=== PATIENT | female | born 1950 | race African-American/Black ===

== ENCOUNTER 2019-04-17 13:31 | Inpatient (IN) | payer OTHER ==
[2019-04-17 14:03] VITALS: BMI 18.1
[2019-04-17] MEDS ORDERED: METOCLOPRAMIDE HCL INJECTION 10 MG/2 ML VIAL IVPUSH ONE (14:18)
--- NOTE | 2019-04-17 14:21 | PDOC ---
Attending Attestation - Resident Resident Name: LynLuther salas - ED Attending Attestation I have performed the following: I have examined & evaluated the patient, The case was reviewed & discussed with the resident, I agree w/resident's findings & plan, Exceptions are as noted - HPI HPI: 04/17/19 14:21 69-year-old female history of hypertension, CAD with 1 stent from 2014, polysubstance abuse(heroin last use today, crack last use 2 days ago), etoh presents with complaint of chest pain. Patient states that she was going to [facility] for detox was noted to have chest pain so sent to the ER for evaluation. Patient states that her chest pain started 2 to 3 days ago when she was using crack it is left-sided, pressure-like patient states it is familiar to her when she uses her crack. Patient also endorses nausea, vomiting , diarrhea, diaphoresis, body aches that is consistent with her withdrawal symptoms. Patient states that sometimes she has some exertional chest discomfort however is different from what she is currently experiencing. PMH: HTN, CAD with stent PSurg: CAD/stent, left mastectomy for sarcoma - Physicial Exam PE: 04/17/19 14:27 GENERAL: The patient is awake, alert, and fully oriented, Nontoxic - in no acute distress. HEAD: Normocephalic, atraumatic. EYES: extraocular movements intact, sclera anicteric, conjunctiva clear. ENT: Normal voice, Moist mucous membranes. NECK: Normal range of motion, supple LUNGS: Breath sounds equal, clear to auscultation bilaterally. No wheezes, no rhonchi, no rales. HEART: Regular rate and rhythm, normal S1 and S2 without murmur, rub or gallop. ABDOMEN: Soft, nontender, No guarding, no rebound. No CVA tenderness EXTREMITIES: Normal range of motion, no edema. NEUROLOGICAL: No facial assymetry, Normal speech, moving all 4 extremities spontaneously and symmetrically PSYCH: Normal mood, normal affect. SKIN: Warm, Dry, normal turgor, sp L mastectomy - Medical Decision Making 04/17/19 14:29 69-year-old history of CAD, hypertension, polysubstance abuse presenting with a complaint of chest pain in the setting of having smoked crack 2 days ago. On exam the patient is no acute distress EKG does not really reveal any acute ischemic changes. Will obtain blood work, troponin, repeat EKG, chest x-ray The patient had received baby aspirin prior to arrival 04/17/19 18:00 patient's troponins negative x1, repeat EKG is unchanged from prior The patient's pain is somewhat atypical, non exertional. pt has a copy of EKG that shows TWI in the inferior leads - [place] compared to ekg here. will admit for furrther management Heart Score/ECG Review - ECG Impressions Comment:: 04/17/19 14:32 Twelve-lead EKG was performed and reviewed by me. There is normal sinus rhythm with a normal rate. Rate of 69 LVH No prior EKG for comparison
[2019-04-17] MEDS ORDERED: ACETAMINOPHEN 1000 MG/100 ML VIAL (NON FORMULARY) IVPB ONE (14:36)
[2019-04-17] MEDS ORDERED: SODIUM CHLORIDE 1,000 ML IV ONE (14:36)
[2019-04-17] MEDS ORDERED: NITROGLYCERIN SUBLINGUAL 1/150 0.4 MG TAB SL ONE (14:38)
[2019-04-17] MEDS ORDERED: METHADONE HCL 10 MG TABLET PO ONE (14:44)
[2019-04-17] MEDS ORDERED: METOCLOPRAMIDE HCL INJECTION 10 MG/2 ML VIAL ONE (14:47)
[2019-04-17] MEDS ORDERED: METHADONE HCL 10 MG TABLET ONE (14:47)
[2019-04-17] MEDS ORDERED: NITROGLYCERIN SUBLINGUAL 1/150 0.4 MG TAB ONE (14:48)
[2019-04-17] MEDS ORDERED: ACETAMINOPHEN INJECTION 100 ML IVPB ONE (14:48)
--- NOTE | 2019-04-17 15:37 | PDOC ---
History of Present Illness - General Chief Complaint: Chest Pain Stated Complaint: Chest Pain Time Seen by Provider: 04/17/19 14:12 History Source: Patient Exam Limitations: No Limitations - History of Present Illness Initial Comments: 04/17/19 15:31 69 yo female pmh HTN, CAD (s/p 1 stent in 2015) heroin and cocaine abuse (last used heroin this am, cocain 2 days ago) etoh abuse presents to the ED from [facility] rehab for CP. During evaluation at [facility] for admission for withdrawal. Pt reports CP started yesterday while resting at home, CP described as sharp and stabbing, Left chest with associated nausea, vomiting and diaphoresis along with body aches similar to past withdrawal symptoms. CP is worse on exertion. Denies recent travel, calf tenderness, back pain, SOB, abdominal pain, F/C/N/V. Past History - Past Medical History Allergies/Adverse Reactions: Allergies Allergy/AdvReac Type Severity Reaction Status Date / Time No Known Allergies Allergy Verified 04/17/19 11:39 Home Medications: Ambulatory Orders NK [No Known Home Medication] 04/17/19 Asthma: No Cardiac Disorders: Yes (CAD) COPD: No Diabetes: No GI Disorders: No Disorders: No HTN: Yes Kidney Stones: No Seizures: No - Surgical History Abdominal Surgery: No Appendectomy: No Cardiac Surgery: Yes (cardiac stent) Cholecystectomy: No Lung Surgery: No Neurologic Surgery: No Orthopedic Surgery: No - Psycho Social/Smoking Cessation Hx Smoking History: Current every day smoker Have you smoked in the past 12 months: Yes Number of Cigarettes Smoked Daily: 10 Information on smoking cessation initiated: Yes 'Breaking Loose' booklet given: 04/17/19 Hx Alcohol Use: Yes Drug/Substance Use Hx: Yes Hx Substance Use Treatment: Yes (10 years ago) Review of Systems - Review of Systems Constitutional: No: Chills, Fever Respiratory: No: Shortness of Breath Cardiac (ROS): Yes: Chest Pain. No: Edema ABD/GI: Yes: Nausea, Vomiting : No: Burning, Dysuria, Frequency, Flank Pain Musculoskeletal: No: Back Pain Integumentary: No: Change in Color Neurological: No: Headache *Physical Exam - Vital Signs Last Vital Signs Temp Pulse Resp BP Pulse Ox 98.0 F 68 20 185/72 H 98 04/17/19 13:56 04/17/19 13:56 04/17/19 13:56 04/17/19 13:56 04/17/19 13:56 - Physical Exam General Appearance: Yes: Nourished, Appropriately Dressed. No: Apparent Distress HEENT: positive: EOMI Neck: positive: Supple. negative: Carotid bruit Respiratory/Chest: positive: Lungs Clear, Normal Breath Sounds. negative: Respiratory Distress, Rapid RR, Crackles, Rales, Rhonchi, Stridor, Wheezing Cardiovascular: positive: Regular Rhythm, Regular Rate, S1, S2. negative: Edema , JVD, Murmur Vascular Pulses: Dorsalis-Pedis (R): 4+, Doralis-Pedis (L): 4+ Gastrointestinal/Abdominal: positive: Flat, Soft. negative: Pulsatile Mass, Protuberent, Distended, Guarding, Rebound, Tenderness Musculoskeletal: negative: CVA Tenderness Extremity: positive: Normal Capillary Refill, Normal Inspection, Normal Range of Motion Integumentary: positive: Normal Color, Dry, Warm Neurologic: positive: Fully Oriented, Alert, Normal Response Heart Score/ECG Review - History History: Moderately suspicious - Electrocardiogram EKG: Non specific repolarization disturbance - Age Age: >/= 65 - Risk Factors Risk Factors Heart Score: Yes Hx Hypertension, Yes Smoking History, Yes Positive family hx of cardiac disease Based on the list above the patient has:: >/=3 risk factors or Hx atherosclerotic disease - Troponin Troponin: </= normal limit - Score Heart Score - Total: 6 ED Treatment Course - LABORATORY CBC & Chemistry Diagram: 04/17/19 16:33 04/17/19 16:33 - Medications Given in the ED: ED Medications Discontinued Medications Generic Name Dose Route Start Last Admin Trade Name Ghulam PRN Reason Stop Dose Admin Acetaminophen 1,000 mg 04/17/19 14:36 04/17/19 14:59 Ofirmev Injection - IVPB 04/17/19 14:37 1,000 mg ONCE ONE Administration Methadone HCl 10 mg 04/17/19 14:44 04/17/19 15:00 Dolophine - PO 04/17/19 14:45 10 mg ONCE ONE Administration Metoclopramide HCl 10 mg 04/17/19 14:18 04/17/19 14:58 Reglan Injection - IVPUSH 04/17/19 14:19 10 mg ONCE ONE Administration Nitroglycerin 0.4 mg 04/17/19 14:38 04/17/19 15:00 Nitrostat - SL 04/17/19 14:39 0.4 mg ONCE ONE Administration Medical Decision Making - Medical Decision Making 04/17/19 15:44 69 yo female pmh HTN, CAD (s/p 1 stent in 2014) heroin and cocaine abuse (last used heroin this am, cocain 2 days ago) etoh abuse presents to the ED from [facility] rehab for CP. During evaluation at [facility] for admission for withdrawal. Pt reports CP started yesterday while resting at home, CP described as sharp and stabbing, Left chest with associated nausea, vomiting and diaphoresis along with body aches similar to past withdrawal symptoms. CP is worse on exertion. Denies recent travel, calf tenderness, back pain, SOB, abdominal pain, F/C/N/V. vitals show elevated BP, with treat pt with methadone for withdrawal and reassess Pending trops from [facility] that were sent. Called the lab multiple times stating it is a state trop order, Lab states they will have it done. Lab is aware these are stat orders for possible [place] Wynne score 6, will admit tele obs 04/17/19 16:43 Dr. Belcher spoke with the lab, states they did not receive any labs and need all labs redrawn 04/17/19 16:47 Pt feels better after methadone, CP relieved and states she is no longer in withdrawal Trop neg, second trop ordered Pt admitted for elevated heart score/ r/o ACS to Dr. Root Discharge - Discharge Information Problems reviewed: Yes Clinical Impression/Diagnosis: Chest pain Condition: Stable - Admission Yes - Follow up/Referral - Patient Discharge Instructions - Post Discharge Activity
[2019-04-17 16:44] LABS: BASO % 0.4 % (0-2.0); HEMATOCRIT 39.2 % (32.4-45.2); HEMOGLOBIN 13.4 GM/dL (10.7-15.3); LYMPH % 10.4 % (8-40); MCH 30.3 pg (25.7-33.7); MCHC 34.2 g/dl (32.0-36.0); MEAN CELL VOLUME 88.6 fl (80-96); MEAN PLT VOLUME 7.2 fl (7.5-11.1); MONO % 7.4 % (3.8-10.2); NEUT % 81.8 % (42.8-82.8); PLATELET COUNT 331 K/MM3 (134-434); RBC 4.42 M/mm3 (3.60-5.2); RDW 14.5 % (11.6-15.6); WHITE BLOOD COUNT 6.3 K/mm3 (4.0-10.0)
[2019-04-17 17:10] LABS: INR 1.12 (0.83-1.09); PROTHROMBIN TIME (PATIENT) 13.2 SEC (9.7-13.0)
[2019-04-17 17:18] LABS: ALBUMIN 3.5 g/dl (3.4-5.0); ALK PHOS 57 U/L (45-117); ANION GAP 6 MMOL/L (8-16); BILIRUBIN,TOTAL 0.5 mg/dL (0.2-1); CALCIUM 9.3 mg/dL (8.5-10.1); CHLORIDE 109 mmol/L (98-107); CO2 26 mmol/L (21-32); CREATININE 0.8 mg/dL (0.55-1.3); GLUCOSE,RANDOM 115 mg/dL (74-106); MAGNESIUM 2.1 mg/dL (1.8-2.4); N-TERMINAL BNP 244.8 pg/ml (5-125); POTASSIUM 3.9 mmol/L (3.5-5.1); SGOT/AST 15 U/L (15-37); SGPT/ALT 13 U/L (13-61); SODIUM 141 mmol/L (136-145); TOT PROT 7.1 g/dl (6.4-8.2)
[2019-04-17] MEDS ORDERED: ASPIRIN 81 MG CHEWABLE TABLETS PO ONE (20:09)
[2019-04-17] MEDS ORDERED: ASPIRIN 81 MG CHEWABLE TABLETS ONE (21:58)
[2019-04-18] MEDS: HEPARIN NA (PORCINE) 5,000 UNITS/ML 1ML VIAL SQ SCH ×2 (00:01→10:30)
[2019-04-18] MEDS ORDERED: ACETAMINOPHEN 325 MG TABLET (FP) ONE ×2 (00:44→20:44)
[2019-04-18] MEDS: ACETAMINOPHEN 325 MG TABLET (FP) PO PRN ×2 (00:47→20:51)
--- NOTE | 2019-04-18 09:59 | ECHO ---
Version: 1 Name: TONE BARNETT Exam: Adult Echocardiogram Study Date: 04/18/2019, 8:30 AM Age: 69 Years MMode/2D Measurements & Calculations IVSd: 0.84 cm LVIDs: 2.7 cm LVIDd: 3.5 cm LVPWd: 1.18 cm LVOT diam: 1.82 cm Ao root diam: 2.7 cm LA dimension: 2.8 cm Doppler Measurements & Calculations MV E max marcel: 78.1 cm/sec Med E/e': 12.0 MV A max marcel: 95.1 cm/sec Med Peak E' Marcel: 6.5 cm/sec MV E/A: 0.82 Lat E/e': 9.8 Lat Peak E' Marcel: 7.9 cm/sec Ao max P.6 mmHg Ao V2 max: 95.1 cm/sec TR max marcel: 228.3 cm/sec TR max P.9 mmHg Left Ventricle The left ventricular size, thickness and function are normal. Ejection Fraction = 60%. The transmitr al spectral Doppler flow pattern is suggestive of impaired LV relaxation. Right Ventricle The right ventricle is normal in size and function. Atria Normal left and right atrial size and function. Mitral Valve The mitral valve is normal. There is trace to mild mitral regurgitation. Tricuspid Valve The tricuspid valve is normal. There is mild tricuspid regurgitation. Aortic Valve There is mild aortic sclerosis.;. Pulmonic Valve The pulmonic valve is not well seen, but is grossly normal. Great Vessels The aortic root is normal size. Normal aortic arch, descending and ascending aorta. Pericardium/Pleura There is no pericardial effusion. Summary Statements The left ventricular size, thickness and function are normal Ejection Fraction = 60%. The right ventricle is normal in size and function. Normal left and right atrial size and function. The mitral valve is normal. There is trace to mild mitral regurgitation. The tricuspid valve is normal. There is mild tricuspid regurgitation. There is mild aortic sclerosis.; The pulmonic valve is not well seen, but is grossly normal. The aortic root is normal size. Normal aortic arch, descending and ascending aorta There is no pericardial effusion. The transmitral spectral Doppler flow pattern is suggestive of impaired LV relaxation. Vicente Niremberg 04/18/2019, 9:58 AM Ordering Physician: Smith Hong Referring Physician: SMITH HONG Performed By: Ml Kate
[2019-04-18] MEDS ORDERED: HEPARIN NA (PORCINE) 5,000 UNITS/ML 1ML VIAL ONE ×2 (10:26)
--- NOTE | 2019-04-18 11:52 | CON.CARD ---
Consult Consult Specialty:: Cardiology Referred by:: Dr. Root Reason for Consultation:: Cardiac evaluation - History of Present Illness Chief Complaint: Chest pain History of Present Illness: Patient is a 69 year old female with underlying history of CAD s/p PCI/stent ( 2015 at [facility]), HTN, breast CA s/p left mastectomy and poly-substance abuse with Heroine, Cocaine and ETOH who presents to ED with complaints of chest discomfort. She states that she has been going to [facility] for Detox. She had used Heroine and Crack recently prior to having dizziness, headache, chest discomfort and abdominal discomfort. She is concerned about withdrawl. She denies nausea, vomiting or diarrhea. She denies fever or chills. She denies paroxysmal nocturnal dyspnea or orthopnea. - History Source History Provided By: Patient, Medical Record Limitations to Obtaining History: Clinical Condition - Past Medical History Cardio/Vascular: Yes: CAD, HTN Psych: Yes: Addictions - Past Surgical History Past Surgical History: Yes: Mastectomy - Alcohol/Substance Use Hx Alcohol Use: Yes History of Substance Use: reports: Cocaine, Heroin - Smoking History Smoking history: Current every day smoker Have you smoked in the past 12 months: Yes Aproximately how many cigarettes per day: 10 Home Medications - Allergies Allergies/Adverse Reactions: Allergies Allergy/AdvReac Type Severity Reaction Status Date / Time No Known Allergies Allergy Verified 04/17/19 11:39 - Home Medications Home Medications: Ambulatory Orders NK [No Known Home Medication] 04/17/19 Review of Systems - Review of Systems Constitutional: denies: Chills, Fever Cardiovascular: reports: Chest Pain, Palpitations. denies: Shortness of Breath Respiratory: denies: Cough, Hemoptysis, Orthopnea, PND, SOB Gastrointestinal: reports: Abdominal Pain. denies: Constipation, Diarrhea, Melena, Nausea, Rectal Bleeding, Vomiting Musculoskeletal: denies: Back Pain, Joint Pain Neurological: reports: Dizziness, Headache. denies: Seizure, Syncope Vital Signs: Vital Signs Temperature 98.0 F 04/17/19 18:00 Pulse Rate 95 H 04/18/19 08:00 Respiratory Rate 22 H 04/18/19 08:00 Blood Pressure 160/90 04/18/19 08:00 O2 Sat by Pulse Oximetry (%) 98 04/18/19 08:00 Neck: Yes: Supple Respiratory: Yes: CTA Bilaterally Gastrointestinal: Yes: Normal Bowel Sounds, Soft. No: Tenderness Cardiovascular: Yes: Regular Rate and Rhythm JVD: No PMI: Non-Displaced Heart Sounds: Yes: S1, S2 Murmur: Yes: Systolic Murmur, Grade 1 Edema: No - Other Data Labs, Other Data: CBC, BMP 04/17/19 16:33 04/17/19 16:33 INR, PTT INR 1.12 (0.83-1.09) H 04/17/19 16:33 Troponin, BNP 04/17/19 04/17/19 16:33 21:00 Troponin I < 0.02 < 0.02 B-Natriuretic Peptide 244.8 H Laboratory Results - last 24 hr 04/17/19 04/17/19 04/17/19 16:33 16:33 16:33 WBC 6.3 RBC 4.42 Hgb 13.4 Hct 39.2 MCV 88.6 MCH 30.3 MCHC 34.2 RDW 14.5 Plt Count 331 MPV 7.2 L Absolute Neuts (auto) 5.2 Neutrophils % 81.8 Lymphocytes % 10.4 Monocytes % 7.4 Eosinophils % 0.0 D Basophils % 0.4 Nucleated RBC % 0 PT with INR 13.20 H INR 1.12 H Sodium 141 Potassium 3.9 Chloride 109 H Carbon Dioxide 26 Anion Gap 6 L BUN 21.0 H Creatinine 0.8 Est GFR (CKD-EPI)AfAm 86.57 Est GFR (CKD-EPI)NonAf 74.70 Random Glucose 115 H Calcium 9.3 Magnesium 2.1 Total Bilirubin 0.5 AST 15 ALT 13 Alkaline Phosphatase 57 Creatine Kinase 25 L Troponin I < 0.02 B-Natriuretic Peptide 244.8 H Total Protein 7.1 Albumin 3.5 Sinus rhythm with LVH Echo: Report Reviewed (Normal LVEF, mild TR, trace to mild MR, impaired relaxation) Imaging - Results Chest X-ray: Report Reviewed (No acute pathology) EKG: Report Reviewed Problem List - Problems (1) HTN (hypertension) Code(s): I10 - ESSENTIAL (PRIMARY) HYPERTENSION (2) History of percutaneous coronary intervention Code(s): Z98.61 - CORONARY ANGIOPLASTY STATUS (3) Alcohol dependence with withdrawal, uncomplicated Code(s): F10.230 - ALCOHOL DEPENDENCE WITH WITHDRAWAL, UNCOMPLICATED (4) Chest pain Code(s): R07.9 - CHEST PAIN, UNSPECIFIED (5) Opioid withdrawal Code(s): F11.23 - OPIOID DEPENDENCE WITH WITHDRAWAL (6) Nicotine dependence Code(s): F17.200 - NICOTINE DEPENDENCE, UNSPECIFIED, UNCOMPLICATED (7) Breast cancer Code(s): C50.919 - MALIGNANT NEOPLASM OF UNSP SITE OF UNSPECIFIED FEMALE BREAST (8) Coronary artery disease Code(s): I25.10 - ATHSCL HEART DISEASE OF [place] CORONARY ARTERY W/O ANG PCTRS Qualifiers: Coronary Disease-Associated Artery/Lesion type: [place] artery [place] vs. transplanted heart: [place] heart Associated angina: without angina Qualified Code(s): I25.10 - Atherosclerotic heart disease of [place] coronary artery without angina pectoris Assessment/Plan 1. Poly-substance abuse with withdrawl symptoms 2. CAD s/p PCI/stent 3. HTN 4. Noncompliance with medications PLAN: 1. Add ACEI or ARB 2. Avoid beta alphonse, but may use Carvedilol 3. Additional BP measures as needed 4. Echocardiography report noted 5. ASA 81 mg QD if not contraindicated 6. Detox Further plans are to follow Sam Vergara MD
[2019-04-18] MEDS ORDERED: NIFEdipine E.R. 30 MG TABLET PO SCH (12:15)
[2019-04-18] MEDS ORDERED: LOSARTAN POTASSIUM 50 MG TABLET (FP) PO SCH (12:15)
[2019-04-18] MEDS ORDERED: CARVEDILOL 3.125 MG TABLET (FP) ONE (12:34)
[2019-04-18] MEDS ORDERED: LOSARTAN POTASSIUM 50 MG TABLET (FP) ONE (12:35)
[2019-04-18] MEDS ORDERED: NIFEdipine E.R. 30 MG TABLET ONE (12:35)
[2019-04-18] MEDS: CARVEDILOL 6.25 MG TABLET (FP) PO SCH (12:37)
--- NOTE | 2019-04-18 13:03 | EKG ---
Test Reason : Blood Pressure : / mmHG Vent. Rate : 063 BPM Atrial Rate : 063 BPM P-R Int : 124 ms QRS Dur : 082 ms QT Int : 430 ms P-R-T Axes : 074 067 075 degrees QTc Int : 440 ms NORMAL SINUS RHYTHM VOLTAGE CRITERIA FOR LEFT VENTRICULAR HYPERTROPHY ABNORMAL ECG WHEN COMPARED WITH ECG OF 17-APR-2019 13:56, NO SIGNIFICANT CHANGE WAS FOUND Confirmed by Anil Wiley MD ([id number]) on 04/18/2019 1:03:10 PM Referred By: Confirmed By:Anil Wiley MD
[2019-04-18] MEDS ORDERED: METHADONE HCL 10 MG TABLET (FOR DETOX USE ONLY) PO ONE (15:12)
[2019-04-18] MEDS ORDERED: METHADONE HCL 10 MG TABLET ONE (15:32)
[2019-04-18 16:10] LABS: PH,URINE 7.5 (5.0-8.0); URINE APPEARANCE CLOUDY; URINE BILIRUBIN NEGATIVE (NEGATIVE); URINE COLOR YELLOW; URINE GLUCOSE (UA) NEGATIVE (NEGATIVE); URINE KETONE NEGATIVE (NEGATIVE); URINE LEUK ESTERASE NEGATIVE (NEGATIVE); URINE NITRITE NEGATIVE (NEGATIVE); URINE PROTEIN TRACE (NEGATIVE)
--- NOTE | 2019-04-18 17:01 | HP ---
Admitting History and Physical - Primary Care Physician PCP: Smith Root - Admission Chief Complaint: chest pain. patient was seen and examined on 04/17 History of Present Illness: 69-year-old female history of hypertension, CAD with 1 stent from 2014, polysubstance abuse(heroin last use today, crack last use 2 days ago), etoh presents with complaint of chest pain. Patient states that she was going to [facility] for detox was noted to have chest pain so sent to the ER for evaluation. Patient states that her chest pain started 2 to 3 days ago when she was using crack it is left-sided, pressure-like patient states it is familiar to her when she uses her crack. Patient also endorses nausea, vomiting , diarrhea, diaphoresis, body aches that is consistent with her withdrawal symptoms. Patient states that sometimes she has some exertional chest discomfort however is different from what she is currently experiencing. - Past Medical History Cardiovascular: Yes: CAD, HTN Psych: Yes: Addictions - Past Surgical History Past Surgical History: Yes: Mastectomy - Smoking History Smoking history: Current every day smoker Have you smoked in the past 12 months: Yes Aproximately how many cigarettes per day: 10 - Alcohol/Substance Use Hx Alcohol Use: Yes History of Substance Use: reports: Cocaine, Heroin Home Medications - Allergies Allergies/Adverse Reactions: Allergies Allergy/AdvReac Type Severity Reaction Status Date / Time No Known Allergies Allergy Verified 04/19/19 10:24 - Home Medications Home Medications: Ambulatory Orders Carvedilol [Coreg -] 6.25 mg PO BID #60 tablet 04/18/19 Losartan Potassium [Cozaar -] 50 mg PO DAILY #30 tablet 04/18/19 Nifedipine ER [Procardia XL -] 30 mg PO DAILY #30 tab.er.24 04/18/19 Physical Examination Vital Signs: Vital Signs Temperature 98.4 F 04/18/19 16:00 Pulse Rate 90 04/18/19 16:00 Respiratory Rate 18 04/18/19 16:00 Blood Pressure 128/78 04/18/19 16:00 O2 Sat by Pulse Oximetry (%) 98 04/18/19 16:00 Constitutional: Yes: No Distress HENT: Yes: Atraumatic Neck: Yes: Supple Cardiovascular: Yes: Regular Rate and Rhythm Respiratory: Yes: CTA Bilaterally Gastrointestinal: Yes: Normal Bowel Sounds Extremities: Yes: WNL Edema: No Neurological: Yes: Alert, Oriented Labs: CBC, BMP 04/17/19 16:33 04/17/19 16:33 Problem List - Problems (1) Alcohol dependence with withdrawal, uncomplicated Assessment/Plan: will start librium detox consult Code(s): F10.230 - ALCOHOL DEPENDENCE WITH WITHDRAWAL, UNCOMPLICATED (2) Chest pain Assessment/Plan: tele monitoring cardiac profile and troponins cardio consult Code(s): R07.9 - CHEST PAIN, UNSPECIFIED (3) HTN (hypertension) Assessment/Plan: monitor on meds Code(s): I10 - ESSENTIAL (PRIMARY) HYPERTENSION Assessment/Plan Laboratory Tests 04/17/19 04/17/19 04/17/19 15:35 16:33 16:33 WBC 6.3 RBC 4.42 Hgb 13.4 Hct 39.2 MCV 88.6 MCH 30.3 MCHC 34.2 RDW 14.5 Plt Count 331 MPV 7.2 L Absolute Neuts (auto) 5.2 Neutrophils % 81.8 Lymphocytes % 10.4 Monocytes % 7.4 Eosinophils % 0.0 D Basophils % 0.4 Nucleated RBC % 0 PT with INR INR Sodium 141 Potassium 3.9 Chloride 109 H Carbon Dioxide 26 Anion Gap 6 L BUN 21.0 H Creatinine 0.8 Est GFR (CKD-EPI)AfAm 86.57 Est GFR (CKD-EPI)NonAf 74.70 Random Glucose 115 H Calcium 9.3 Magnesium 2.1 Total Bilirubin 0.5 AST 15 ALT 13 Alkaline Phosphatase 57 Creatine Kinase 25 L Troponin I < 0.02 B-Natriuretic Peptide 244.8 H Total Protein 7.1 Albumin 3.5 Urine Color Yellow Urine Appearance Cloudy Urine pH 7.5 Ur Specific [place] 1.020 Urine Protein Trace Urine Glucose (UA) Negative Urine Ketones Negative Urine Blood Negative Urine Nitrite Negative Urine Bilirubin Negative Urine Urobilinogen 1.0 Ur Leukocyte Esterase Negative 04/17/19 04/17/19 16:33 21:00 WBC RBC Hgb Hct MCV MCH MCHC RDW Plt Count MPV Absolute Neuts (auto) Neutrophils % Lymphocytes % Monocytes % Eosinophils % Basophils % Nucleated RBC % PT with INR 13.20 H INR 1.12 H Sodium Potassium Chloride Carbon Dioxide Anion Gap BUN Creatinine Est GFR (CKD-EPI)AfAm Est GFR (CKD-EPI)NonAf Random Glucose Calcium Magnesium Total Bilirubin AST ALT Alkaline Phosphatase Creatine Kinase 28 Troponin I < 0.02 B-Natriuretic Peptide Total Protein Albumin Urine Color Urine Appearance Urine pH Ur Specific [place] Urine Protein Urine Glucose (UA) Urine Ketones Urine Blood Urine Nitrite Urine Bilirubin Urine Urobilinogen Ur Leukocyte Esterase Active Medications Generic Name Dose Route Start Last Admin Trade Name Freq PRN Reason Stop Dose Admin Acetaminophen 650 mg 04/17/19 20:37 04/18/19 00:47 Tylenol - PO 650 mg Q6H PRN Administration FEVER Carvedilol 6.25 mg 04/18/19 12:15 04/18/19 12:37 Coreg - PO 6.25 mg BID SEBASTIAN Administration Heparin Sodium (Porcine) 5,000 unit 04/17/19 22:00 04/18/19 10:30 Heparin - SQ 5,000 unit BID SEBASTIAN Administration Losartan Potassium 50 mg 04/18/19 12:15 04/18/19 12:37 Cozaar - PO 50 mg DAILY SEBASTIAN Administration Nifedipine 30 mg 04/18/19 12:15 04/18/19 12:37 Procardia Xl - PO 30 mg DAILY SEBASTIAN Administration
[2019-04-18] MEDS ORDERED: FAMOTIDINE 20 MG TABLET PO SCH (22:00)
[2019-04-19] MEDS ORDERED: chlordiazePOXIDE HCL 25 MG CAPSULE ONE ×2 (00:15→05:10)
[2019-04-19] MEDS ORDERED: CARVEDILOL 3.125 MG TABLET (FP) ONE (00:15)
[2019-04-19] MEDS ORDERED: HEPARIN NA (PORCINE) 5,000 UNITS/ML 1ML VIAL ONE (00:16)
[2019-04-19] MEDS ORDERED: FAMOTIDINE 20 MG TABLET ONE (00:16)
[2019-04-19] MEDS: HEPARIN NA (PORCINE) 5,000 UNITS/ML 1ML VIAL SQ SCH (01:03)
[2019-04-19] MEDS: CARVEDILOL 6.25 MG TABLET (FP) PO SCH (01:03)
[2019-04-19] MEDS: chlordiazePOXIDE HCL 25 MG CAPSULE PO SCH ×2 (01:03→05:18)
[2019-04-19] MEDS ORDERED: METHADONE HCL 10 MG TABLET PO SCH (06:00)
[2019-04-19 08:48] VITALS: BP 153/98; PULSE 90; TEMP 98.1
--- NOTE | 2019-04-19 18:59 | DS ---
Physical Examination Vital Signs: Vital Signs Temperature 98.1 F 04/19/19 07:45 Pulse Rate 90 04/19/19 07:45 Respiratory Rate 16 04/19/19 07:45 Blood Pressure 153/98 04/19/19 07:45 O2 Sat by Pulse Oximetry (%) 98 04/19/19 07:45 Constitutional: Yes: No Distress HENT: Yes: Atraumatic Neck: Yes: Supple Cardiovascular: Yes: Regular Rate and Rhythm Respiratory: Yes: CTA Bilaterally Gastrointestinal: Yes: Normal Bowel Sounds Extremities: Yes: WNL Neurological: Yes: Alert, Oriented Labs: CBC, BMP 04/17/19 16:33 04/17/19 16:33 Discharge Summary Problems reviewed: Yes Reason For Visit: CHEST PAIN Current Active Problems Alcohol dependence with withdrawal, uncomplicated (Acute) Opioid withdrawal (Acute) Nicotine dependence (Chronic) Condition: Stable - Instructions Referrals: ON STAFF,NOT [Primary Care Provider] - Disposition: [facility] - Home Medications Comprehensive Discharge Medication List: Ambulatory Orders Carvedilol [Coreg -] 6.25 mg PO BID #60 tablet 04/18/19 Losartan Potassium [Cozaar -] 50 mg PO DAILY #30 tablet 04/18/19 Nifedipine ER [Procardia XL -] 30 mg PO DAILY #30 tab.er.24 04/18/19 [facility]
== END 2019-04-19 09:35 | disposition other institution (70) | DRG 313 ==
LOC: JER 13:31 → JERBED 19:15
PROVIDERS: ADMIT Internal Medicine; ATTEND Internal Medicine
DX: R07.9 Chest pain, unspecified (principal); F11.23 Opioid dependence with withdrawal; F10.239 Alcohol dependence with withdrawal, unspecified; F17.210 Nicotine dependence, cigarettes, uncomplicated; I10 Essential (primary) hypertension; I25.10 Atherosclerotic heart disease of native coronary artery without angina pectoris; R61 Generalized hyperhidrosis; R11.2 Nausea with vomiting, unspecified
CPT/HCPCS: 36415; 71045-TC-FY; 80053; 81003; 82550; 83735; 83880; 84484; 85025; 85610; 87086; 93005; 93010; 93306-TC; 99285-25; J0131; J1644; J7030

== ENCOUNTER 2019-04-19 09:50 | Inpatient (IN) | payer OTHER ==
[2019-04-19] MEDS ORDERED: METHOCARBAMOL 500 MG TABLET PO PRN (10:14)
[2019-04-19] MEDS ORDERED: ACETAMINOPHEN 325 MG TABLET (FP) PO PRN ×2 (10:14)
[2019-04-19] MEDS ORDERED: chlordiazePOXIDE HCL 25 MG CAPSULE PO PRN (10:14)
[2019-04-19] MEDS ORDERED: MAG HYDROX/AL HYDROX/SIMETH 30 ML UNIT-DOSE CUP PO PRN (10:14)
[2019-04-19] MEDS ORDERED: BISMUTH SUBSALICYLATE 262 MG/15 ML BTL PO PRN (10:14)
[2019-04-19] MEDS ORDERED: cloNIDine HCL 0.1 MG TABLET PO PRN (10:14)
[2019-04-19] MEDS ORDERED: IBUPROFEN 400 MG TABLET (FP) PO PRN (10:14)
[2019-04-19] MEDS ORDERED: MAGNESIUM CITRATE 300 ML BOTTLE PO PRN (10:14)
[2019-04-19] MEDS ORDERED: MENTHOL/PHENOL 1 EACH UD MM PRN (10:14)
[2019-04-19] MEDS ORDERED: MELATONIN 5 MG TABLETS PO PRN (10:14)
[2019-04-19] MEDS ORDERED: hydrOXYzine PAMOATE 25 MG CAPSULE (FP) PO PRN (10:14)
[2019-04-19] MEDS ORDERED: MAGNESIUM HYDROX 2400MG/30ML ORAL SUSPENSION 30 ML CUP PO PRN (10:14)
--- NOTE | 2019-04-19 10:24 | PN ---
[facility] Progress Note Note: Ms. Ceja returns from [facility] for admission to detox. She was here on Apr 17 and was complaining of chest pain. She was ruled out for [place] and returned to [facility].
[2019-04-19] MEDS ORDERED: NIFEdipine E.R. 30 MG TABLET PO SCH (10:30)
[2019-04-19] MEDS ORDERED: LOSARTAN POTASSIUM 50 MG TABLET (FP) PO SCH (10:30)
[2019-04-19 10:40] VITALS: BMI 16.9
[2019-04-19] MEDS ORDERED: METHADONE HCL 10 MG TABLET (FOR DETOX USE ONLY) PO ONE (10:40)
[2019-04-19] MEDS: chlordiazePOXIDE HCL 25 MG CAPSULE PO SCH ×3 (11:26→23:21)
[2019-04-19] MEDS: CARVEDILOL 6.25 MG TABLET (FP) PO SCH ×2 (13:52→23:21)
[2019-04-19] MEDS ORDERED: THIAMINE HCL 100 MG TABLET (FP) PO SCH (22:00)
[2019-04-19] MEDS ORDERED: NALOXONE (NARCAN) HCL 4 MG/0.1 ML SPRAY NS ONE ×2 (23:08→23:22)
[2019-04-19 23:12] VITALS: BP 89/61; PULSE 81; TEMP 96.7
--- NOTE | 2019-04-19 23:22 | PN ---
[facility] Progress Note Note: ASKED TO SEE PATIENT FOR CHANGE IN MENTAL STATUS AND HYPOTENSION. UPON ARRIVAL CLIENT WAS SEEN LYING IN BED SOMNOLENT, LETHARGIC, AROUSABLE TO VERBAL STIMULI WITH SLOW SPEECH A/O X3 WITH PERIODS OF FALLING ASLEEP DURING DISCUSSION. DENIES C.P., SOB, N/V/D, DIZZINESS. HEAD- PINPOINT PUPILS, DRY MUCUS MEMBRANES CV- RRR CHEST- CTAB WITH DECREASE BREATH SOUNDS REP RATE 8 SKIN- COOL TO TOUCH Vital Signs - 8 hr 04/19/19 04/19/19 04/19/19 17:14 21:11 22:54 Temperature 96.0 F L 95.3 F L Pulse Rate 71 71 71 Respiratory 18 18 20 Rate Blood Pressure 103/75 82/63 L 81/59 L 04/19/19 23:11 Temperature 96.7 F L Pulse Rate 81 Respiratory 20 Rate Blood Pressure 89/61 L Laboratory Tests 04/19/19 23:02 POC Glucometer 151 A- HYPOTENSIVE, ?METHADONE OVERDOSE. P- NASAL NARCAN 4MG X1 DOSE BGM TRANSFER TO [facility] ER FOR EVAL CLIENT RESPONDED TO NASAL NARCAN 4MG, NOW AWAKE ALERT, REFUSING HOSP TRANSFER TO ER, REPEAT B/P STILL HYPOTENSIVE/HYPOTHERMIA 89/61, TEMP 96.1 ORAL, 69 Y.O. FEMLA WITH HX/O HTN CAD/ W STENT , CRACK HEROIN DEPENDENCE ADMITTED EARLIER TODAY AFTER RETURNING FROM [facility] AFTER 2 DAY STAY FOR C.P. HOSPITAL COURSE NEGATIVE WORK UP FOR C.P. CLEARED AND RETURNED TODAY FOR DETOX. CLIENT IS ON A METHADONE/ LIBRIUM TAPER. SHE RECEIVED 30 MG OF METHADONE EARLIER TODAY AND ANOTHER 10 MG IN [facility] PRIOR TO DC (TOTAL 40 MG).
[2019-04-20] MEDS: chlordiazePOXIDE HCL 25 MG CAPSULE PO SCH (06:23)
[2019-04-20] MEDS ORDERED: METHADONE (DETOX) 20 MG, METHADONE (DETOX) 5 MG PO ONE (10:00)
[2019-04-20] MEDS ORDERED: PRENATAL VITAMINS W/ FOLIC ACID TABLET (FP) PO SCH (10:00)
[2019-04-21] MEDS ORDERED: chlordiazePOXIDE HCL 25 MG CAPSULE PO SCH (05:00)
[2019-04-21] MEDS ORDERED: METHADONE HCL 10 MG TABLET (FOR DETOX USE ONLY) PO ONE (10:00)
[2019-04-22] MEDS ORDERED: chlordiazePOXIDE HCL 10 MG CAPSULE PO PRN
[2019-04-22] MEDS ORDERED: chlordiazePOXIDE HCL 10 MG CAPSULE PO SCH (05:00)
[2019-04-22] MEDS ORDERED: METHADONE (DETOX) 10 MG, METHADONE (DETOX) 5 MG PO ONE (10:00)
[2019-04-23] MEDS ORDERED: chlordiazePOXIDE HCL 10 MG CAPSULE PO SCH (05:00)
[2019-04-23] MEDS ORDERED: METHADONE HCL 10 MG TABLET (FOR DETOX USE ONLY) PO ONE (10:00)
[2019-04-24] MEDS ORDERED: chlordiazePOXIDE HCL 10 MG CAPSULE PO ONE (05:00)
[2019-04-24] MEDS ORDERED: METHADONE HCL 5 MG TABLET (FOR DETOX USE ONLY) PO ONE (06:00)
--- NOTE | 2019-04-28 10:45 | EKG ---
Test Reason : Blood Pressure : / mmHG Vent. Rate : 068 BPM Atrial Rate : 068 BPM P-R Int : 124 ms QRS Dur : 068 ms QT Int : 416 ms P-R-T Axes : 024 -14 -21 degrees QTc Int : 442 ms NORMAL SINUS RHYTHM VOLTAGE CRITERIA FOR LEFT VENTRICULAR HYPERTROPHY INFERIOR INFARCT , AGE UNDETERMINED ABNORMAL ECG NO PREVIOUS ECGS AVAILABLE Confirmed by OMAYRA DE LOS SANTOS MD ([id number]) on 04/28/2019 10:45:36 AM Referred By: Confirmed By:OMAYRA DE LOS SANTOS MD
== END 2019-04-19 11:50 | disposition short-term general hospital (02) | DRG 897 ==
LOC: YASAS 09:50 → Y3N 10:30
PROVIDERS: ADMIT Allergy & Immunology; ATTEND Allergy & Immunology
PROC: HZ2ZZZZ Detoxification Services for Substance Abuse Treatment (ICD-10-PCS; principal; 2019-04-19)
DX: F11.20 Opioid dependence, uncomplicated (principal); F14.20 Cocaine dependence, uncomplicated; I10 Essential (primary) hypertension; I25.10 Atherosclerotic heart disease of native coronary artery without angina pectoris; I95.9 Hypotension, unspecified; R41.82 Altered mental status, unspecified; Z95.5 Presence of coronary angioplasty implant and graft
CPT/HCPCS: 82962; 93005; 93010

== ENCOUNTER 2019-04-20 00:12 | Inpatient (IN) | payer OTHER ==
--- NOTE | 2019-04-20 01:05 | PDOC ---
History of Present Illness - General Chief Complaint: Substance Abuse Stated Complaint: SUBSTANCE ABUSE Time Seen by Provider: 04/20/19 00:23 History Source: Patient Exam Limitations: No Limitations - History of Present Illness Initial Comments: 69 yo F with a hx of CAD s/p Stents, HTN, crack use, and heroin use (previously on methadone, 100 mg per patient) presents to the emergency department with suspected overdose from methadone s/p 4 mg of narcan. Per the patient, she was given 10 mg of methadone at [facility] and 30 mg of methadone at [facility]. Per the patient, she was recently seen at [facility] [place] pain and DC'd to [facility]. At [facility], she was found to be lethargic and labile with falling asleep spontaneously to the staff. Currently, the patient feels generalized weakness, nausea, and SOB but denies chest pain, vomiting, fevers, and abdominal pain. Denies the following: chills, dysuria, hematuria, diarrhea, and leg pain/swelling. Past History - Past Medical History Allergies/Adverse Reactions: Allergies Allergy/AdvReac Type Severity Reaction Status Date / Time No Known Allergies Allergy Verified 04/20/19 00:38 Home Medications: Ambulatory Orders Carvedilol [Coreg -] 6.25 mg PO BID #60 tablet 04/18/19 Losartan Potassium [Cozaar -] 50 mg PO DAILY #30 tablet 04/18/19 Acetaminophen [Tylenol] 650 mg PO Q6H PRN 04/21/19 Bismuth Subsalicylate [Pepto-Bismol -] 30 ml PO Q1H PRN 04/21/19 Mag Hydrox/Al Hydrox/Simeth [Mylanta Oral Suspension -] 30 ml PO Q6H PRN Magnesium Hydrox 2400MG/30Ml [Milk of Magnesia -] 30 ml PO PRN PRN 04/21/19 Melatonin 5 mg PO HS PRN 04/21/19 Menthol/Phenol [Cepastat Lozenge -] 1 each PO Q4H PRN 04/21/19 Thiamine HCl [Vitamin B-1] 100 mg PO HS 04/21/19 Amlodipine Besylate [Norvasc -] 5 mg PO DAILY #30 tablet 04/26/19 Aspirin Coated [Ecotrin -] 81 mg PO DAILY #30 tablet.ec 04/26/19 Folic Acid - 1 mg PO DAILY #30 tablet 04/26/19 Ondansetron [Zofran -] 4 mg PO Q8H PRN #14 tablet 04/26/19 Pantoprazole Sodium [Protonix -] 40 mg PO DAILY #30 tablet. 04/26/19 Asthma: No Cardiac Disorders: Yes (CAD with a stent) COPD: No Diabetes: No GI Disorders: No Disorders: No HTN: Yes Kidney Stones: No Seizures: No - Surgical History Abdominal Surgery: No Appendectomy: No Cardiac Surgery: Yes (cardiac stent) Cholecystectomy: No Lung Surgery: No Neurologic Surgery: No Orthopedic Surgery: No - Reproductive History PID: No - Psycho Social/Smoking Cessation Hx Smoking History: Unknown if ever smoked Have you smoked in the past 12 months: Yes Number of Cigarettes Smoked Daily: 10 Information on smoking cessation initiated: No 'Breaking Loose' booklet given: 04/17/19 Hx Alcohol Use: Yes Drug/Substance Use Hx: Yes Hx Substance Use Treatment: Yes Review of Systems - Review of Systems Able to Perform ROS?: Yes Is the patient limited Latvian proficient: No Constitutional: Yes: Weakness. No: Chills, Diaphoresis, Fever HEENTM: No: Eye Pain, Ear Pain, Nose Pain, Throat Pain, Mouth Pain Respiratory: Yes: Shortness of Breath. No: Cough, Hemoptysis Cardiac (ROS): Yes: Syncope. No: Chest Pain, Lightheadedness, Palpitations, Chest Tightness ABD/GI: Yes: Nausea. No: Constipated, Diarrhea, Rectal Bleeding, Vomiting, Tarry Stools : No: Burning, Hematuria Musculoskeletal: No: Back Pain, Joint Pain, Neck Pain Integumentary: No: Bruising, Erythema, Rash Neurological: No: Headache, Tingling Psychiatric: No: Change in Appetite Endocrine: No: Unexplained Weight Loss Hematologic/Lymphatic: No: Anemia *Physical Exam - Vital Signs Last Vital Signs Temp Pulse Resp BP Pulse Ox 97.7 F 73 22 H 134/89 99 04/20/19 00:33 04/20/19 00:33 04/20/19 00:33 04/20/19 00:33 04/20/19 00:33 - Physical Exam General Appearance: Yes: Nourished, Appropriately Dressed, Other (lethargic on exam. arouses to verbal, tactile, and painful stimuli). No: Alcohol on Breath, Intoxicated HEENT: positive: EOMI, DEVIN, Normal ENT Inspection, Normal Voice, Symmetrical, TMs Normal, Pharynx Normal, Other (dry mucous membranes). negative: Scleral Icterus (R), Scleral Icterus (L), Muffled/Hoarse voice, Pharyngeal Erythema, Tonsillar Exudate, Tonsillar Erythema Neck: positive: Trachea midline, Supple. negative: Tender, Lymphadenopathy (R) , Lymphadenopathy (L), Tender lateral, Tender midline Respiratory/Chest: positive: Lungs Clear, Normal Breath Sounds. negative: Chest Tender, Respiratory Distress, Accessory Muscle Use, Crackles, Rales, Rhonchi, Stridor, Wheezing Cardiovascular: positive: Regular Rhythm, S1, S2, Bradycardia. negative: Systolic Murmur Gastrointestinal/Abdominal: positive: Normal Bowel Sounds, Flat, Soft. negative : Tender, Distended, Guarding, Rebound Lymphatic: negative: Adenopathy Musculoskeletal: positive: Normal Inspection. negative: CVA Tenderness, Vertebral Tenderness Extremity: positive: Normal Capillary Refill, Normal Inspection, Normal Range of Motion. negative: Tender Integumentary: positive: Normal Color, Dry, Warm Neurologic: positive: nurse head II-XII NML intact, Fully Oriented, Normal Response, Motor Strength 5/5, Respond to painful stimul, Responsive. negative: Alert ( somnolent on exam), Normal Mood/Affect (lethargic) ED Treatment Course - LABORATORY CBC & Chemistry Diagram: 04/26/19 06:05 04/26/19 06:05 - ADDITIONAL ORDERS Additional order review: Laboratory Results 04/20/19 00:45 POC Glucometer 115 04/20/19 00:45 POC Glucometer 115 Medical Decision Making - Medical Decision Making 69 yo F with a hx of CAD s/p Stents, HTN, crack use, and heroin use (previously on methadone, 100 mg per patient) presents to the emergency department with suspected overdose from methadone s/p 4 mg of narcan. Initial vitals; Initial Vital Signs Temp Pulse Resp BP Pulse Ox 96.1 F L 43 L 9 L 90/63 94 L 04/20/19 00:15 04/20/19 00:15 04/20/19 00:15 04/20/19 00:15 04/20/19 00:15 Work up: patient presents with iatrogenic overdose of methadone s/p 4 mg of narcan for reversal. repeat vitals show 134/89 bp, 73 bpm, 22 RR, and 99% on RA Laboratory Tests 04/20/19 04/20/19 04/20/19 00:45 00:55 00:55 WBC 6.9 RBC 5.31 H Hgb 16.2 H Hct 46.8 H D MCV 88.3 MCH 30.4 MCHC 34.5 RDW 14.7 Plt Count 398 D MPV 8.0 D Absolute Neuts (auto) 5.1 Neutrophils % 73.5 Lymphocytes % 18.2 D Monocytes % 7.6 Eosinophils % 0.1 D Basophils % 0.6 Nucleated RBC % 0 PT with INR INR Sodium 136 Potassium 4.7 Chloride 103 Carbon Dioxide 24 Anion Gap 10 BUN 48.8 H Creatinine 2.1 H Est GFR (CKD-EPI)AfAm 26.96 Est GFR (CKD-EPI)NonAf 23.26 POC Glucometer 115 Random Glucose 112 H Lactic Acid Calcium 10.4 H Total Bilirubin 0.9 AST 28 ALT 17 Alkaline Phosphatase 63 Creatine Kinase 68 Troponin I < 0.02 Total Protein 8.2 Albumin 4.0 Lipase 04/20/19 04/20/19 04/20/19 00:55 00:55 00:55 WBC RBC Hgb Hct MCV MCH MCHC RDW Plt Count MPV Absolute Neuts (auto) Neutrophils % Lymphocytes % Monocytes % Eosinophils % Basophils % Nucleated RBC % PT with INR 10.90 INR 0.92 Sodium Potassium Chloride Carbon Dioxide Anion Gap BUN Creatinine Est GFR (CKD-EPI)AfAm Est GFR (CKD-EPI)NonAf POC Glucometer Random Glucose Lactic Acid 1.8 Calcium Total Bilirubin AST ALT Alkaline Phosphatase Creatine Kinase Troponin I Total Protein Albumin Lipase 539 H EKG: patient ekg shows sinus rhythm with new TWI noted from previous EKG within the past 2 days. TWI noted in ii, iii, v3-v5. No ST elevations or depressions. Patient was given an additional 0.4 mg of narcan which improved responsiveness. patient now fully responsive to verbal stimuli. Patient's EKG is concerning for new changes from previous one. Patient to be admitted for JENNIFER likely secondary to dehydration (hemoconcentrated with elevated creatinine) and EKG changes to rule out ACS. Patient also has persistence of AMS in the setting of negative head CT Discharge - Discharge Information Problems reviewed: Yes Clinical Impression/Diagnosis: AMS (altered mental status), Acute electrocardiogram changes Condition: Fair - Follow up/Referral - Patient Discharge Instructions - Post Discharge Activity
[2019-04-20] MEDS ORDERED: SODIUM CHLORIDE 1,000 ML IV STA (01:07)
[2019-04-20] MEDS ORDERED: NALOXONE HCL 0.4 MG/ML VIAL IVPUSH ONE (01:07)
--- NOTE | 2019-04-20 01:18 | PDOC ---
Documentation entered by Gertrude Durand SCRIBE, acting as scribe for Bree Quinonez DO. Bree Quinonez DO: This documentation has been prepared by the Ladarius zarate Xhesika, SCRIBE, under my direction and personally reviewed by me in its entirety. I confirm that the documentation accurately reflects all work, treatment, procedures, and medical decision making performed by me. Attending Attestation - Resident Resident Name: Osmar Jerome - ED Attending Attestation I have performed the following: I have examined & evaluated the patient, The case was reviewed & discussed with the resident, I agree w/resident's findings & plan, Exceptions are as noted - HPI HPI: 04/20/19 00:54 The patient is a 69 year old female with a significant PMH of HTN, CAD (s/p 1 stent in 2014) heroin and cocaine abuse (last used heroin this am, cocaine 2 days ago) etoh abuse who presents to the emergency department [facility] from [facility] for methadone overdose. Pt was seen here in the ED 04/17/2019 for chest pain and was d/c back to [facility]. Per [facility] note the patient was found lying in bed somnolent, lethargic with periods of falling asleep. pt states she feels nauseous, SOB and has not eaten in 2 days. The patient denies chest pain, headache and dizziness. Denies fever, chills, cough, vomiting, diarrhea. Allergies: NKDA - Physicial Exam PE: 04/20/19 01:12 GENERAL: Lethargic, arousal to verbal and tactile stimuli HEAD: No signs of trauma EYES: PERRLA, EOMI, sclera anicteric, conjunctiva clear ENT: Auricles normal inspection, hearing grossly normal, nares patent, oropharynx clear without exudates. + dry mucosa LUNGS: Breath sounds equal, clear to auscultation bilaterally. No wheezes, and no crackles HEART: Regular rate and rhythm, normal S1 and S2, no murmurs, rubs or gallops ABDOMEN: Soft, nontender, normoactive bowel sounds. No guarding, no rebound. No masses EXTREMITIES: Normal range of motion. SKIN: Warm, Dry, normal turgor, no rashes or lesions noted. - Medical Decision Making 04/20/19 01:17 a/p: 69yo female sent from [facility] after receiving 30mg methadone with ams, received 10mg methadone earlier today also for a total of 40mg -pt given narcan 4mg at [facility] -vss upon arrival -pt lethargic, responsive to verbal and tactile stimuli -will send labs, narcan -will monitor and reassess 04/20/19 02:[address] neg labs pending pt will need admission for ams and abnl ekg changed from 2 days ago Heart Score/ECG Review - ECG Intrepretation Comment:: 04/20/19 01:25 sinus at 82, nl axis, lvh, s depression with t wave inversions II, III, t wave inversions v3-v5, change from 2 days ago
[2019-04-20] MEDS ORDERED: NALOXONE HCL 0.4 MG/ML VIAL ONE (01:25)
[2019-04-20] MEDS ORDERED: ONDANSETRON 4 MG/2 ML VIAL IVPUSH ONE (01:25)
[2019-04-20] MEDS ORDERED: ONDANSETRON 4 MG/2 ML VIAL ONE (01:25)
[2019-04-20 01:36] LABS: BASO % 0.6 % (0-2.0); EOS % 0.1 % (0-4.5); HEMATOCRIT 46.8 % (32.4-45.2); HEMOGLOBIN 16.2 GM/dL (10.7-15.3); LYMPH % 18.2 % (8-40); MCH 30.4 pg (25.7-33.7); MCHC 34.5 g/dl (32.0-36.0); MEAN CELL VOLUME 88.3 fl (80-96); MONO % 7.6 % (3.8-10.2); NEUT % 73.5 % (42.8-82.8); PLATELET COUNT 398 K/MM3 (134-434); RBC 5.31 M/mm3 (3.60-5.2); RDW 14.7 % (11.6-15.6); WHITE BLOOD COUNT 6.9 K/mm3 (4.0-10.0)
[2019-04-20 02:20] LABS: ALK PHOS 63 U/L (45-117); ANION GAP 10 MMOL/L (8-16); BILIRUBIN,TOTAL 0.9 mg/dL (0.2-1); BLOOD UREA NITROGEN 48.8 mg/dL (7-18); CALCIUM 10.4 mg/dL (8.5-10.1); CHLORIDE 103 mmol/L (98-107); CO2 24 mmol/L (21-32); CREATININE 2.1 mg/dL (0.55-1.3); GLUCOSE,RANDOM 112 mg/dL (74-106); POTASSIUM 4.7 mmol/L (3.5-5.1); SGOT/AST 28 U/L (15-37); SGPT/ALT 17 U/L (13-61); SODIUM 136 mmol/L (136-145); TOT PROT 8.2 g/dl (6.4-8.2)
[2019-04-20 02:53] LABS: INR 0.92 (0.83-1.09); PROTHROMBIN TIME (PATIENT) 10.9 SEC (9.7-13.0)
[2019-04-20] MEDS ORDERED: DEXTROSE 5%-NORMAL SALINE 1,000 ML IV SCH (05:15)
[2019-04-20] MEDS: HEPARIN NA (PORCINE) 5,000 UNITS/ML 1ML VIAL SQ SCH ×3 (05:43→21:18)
[2019-04-20] MEDS ORDERED: HEPARIN NA (PORCINE) 5,000 UNITS/ML 1ML VIAL ONE (05:44)
--- NOTE | 2019-04-20 06:26 | HP ---
<Henry Lagunas - Last Filed: 04/20/19 05:35> CHIEF COMPLAINT: Lethargic, possible overdose PCP: Unknown HISTORY OF PRESENT ILLNESS: 69F PMH HTN, CAD (s/p stent) PSA (crack cocaine, heroin, alcohol), who presents today from [facility] after being found unconscious. Patient was found somnolent at [facility] detox, where she was given 4 of Narcan intranasally. Upon arriving to the ED she remained somnolent and was given 0.4 mg narcan. Today in the morning (04/19), patient was given 30 mg of methadone, and 50 mg of librium and then sent over to [facility] for continued detox. She was initially sent to [facility] from [facility] due to chest pain on 04/17/19. Patient is currently complaining of chest pressure that is non radiating. She does not associate her chest pressure with exertion or breathing. She denies any shortness of breath. She has abdominal pain, nausea, vomiting, and diarrhea. She feels more lethargic than usual. She denies any fevers or chills. ER course was notable for: (1) Patient was noted to be hypothermic (96.1), bradycardic (47), hypotensive ( 90/63), decreased RR (9). Was given 0.4 mg Narcan and became HD stable and responsive. (2) EKG was done which showed New t-wave inversions in leads II, III, V3,V4,V5 (3) Head CT was done which was negative Recent Travel: None PAST MEDICAL HISTORY: HTN, CAD, PSA (crack cocaine, heroin, alcohol), breast sarcoma s/p mastectomy PAST SURGICAL HISTORY: Left mastectomy Social History: Smoking: Denies cigarette use Alcohol: 4 cans of beer daily Drugs: Crack cocaine 4-5 bags daily, heroin 8 bags daily Allergies No Known Allergies Allergy (Verified 04/20/19 00:38) HOME MEDICATIONS: Home Medications Medication Instructions Recorded Carvedilol [Coreg -] 6.25 mg PO BID #60 tablet 04/18/19 Losartan Potassium [Cozaar -] 50 mg PO DAILY #30 tablet 04/18/19 Nifedipine ER [Procardia XL -] 30 mg PO DAILY #30 tab.er.24 04/18/19 REVIEW OF SYSTEMS CONSTITUTIONAL: Present: generalized weakness Absent: fever, chills, diaphoresis, malaise, loss of appetite, weight change HEENT: Absent: rhinorrhea, nasal congestion, throat pain, throat swelling, difficulty swallowing, mouth swelling, ear pain, eye pain, visual changes CARDIOVASCULAR: Present: Chest pressure Absent:syncope, palpitations, irregular heart rate, lightheadedness, peripheral edema RESPIRATORY: Absent: cough, shortness of breath, dyspnea with exertion, orthopnea, wheezing, stridor, hemoptysis GASTROINTESTINAL: Present: Abdominal pain, nausea, vomiting, diarrhea Absent: constipation, melena, hematochezia GENITOURINARY: Absent: dysuria, frequency, urgency, hesitancy, hematuria, flank pain, genital pain MUSCULOSKELETAL: Absent: myalgia, arthralgia, joint swelling, back pain, neck pain SKIN: Absent: rash, itching, pallor HEMATOLOGIC/IMMUNOLOGIC: Absent: easy bleeding, easy bruising, lymphadenopathy, frequent infections ENDOCRINE: Absent: unexplained weight gain, unexplained weight loss, heat intolerance, cold intolerance NEUROLOGIC: Present: mental status changes, increasing somnolence Absent: headache, focal weakness or paresthesias, dizziness, unsteady gait, seizure, mental status changes, bladder or bowel incontinence PSYCHIATRIC: Absent: anxiety, depression, suicidal or homicidal ideation, hallucinations. PHYSICAL EXAMINATION Vital Signs - 24 hr 04/20/19 04/20/19 04/20/19 00:15 00:33 05:02 Temperature 96.1 F L 97.7 F 98.0 F Pulse Rate 43 L 73 Pulse Rate [ 88 Apical] Respiratory 9 L 22 H 19 Rate Blood Pressure 90/63 134/89 Blood Pressure 126/65 [Right Arm] O2 Sat by Pulse 94 L 99 98 Oximetry (%) GENERAL: Alert and oriented to self and place HEAD: Normal with no signs of trauma. EYES: Pupils constricted, EOMI intact. EARS, NOSE, THROAT: Oropharynx clear, moist mucus membranes LUNGS: Breath sounds equal, clear to auscultation bilaterally. No wheezes HEART: Regular rate and rhythm, normal S1 and S2 without murmur, rub or gallop. ABDOMEN: Soft, normoactive bowel sounds. Tender epigastric region. MUSCULOSKELETAL: Normal range of motion at all joints. . UPPER EXTREMITIES: 2+ pulses, warm, well-perfused. No cyanosis. No clubbing. No peripheral edema. LOWER EXTREMITIES: 2+ pulses, warm, well-perfused. No calf tenderness. No peripheral edema. NEUROLOGICAL: 4/5 strength b/l upper and lower extremities. CN II- intact. PSYCHIATRIC: Cooperative. Laboratory Results - last 24 hr 04/20/19 04/20/19 04/20/19 00:45 00:55 00:55 WBC 6.9 RBC 5.31 H Hgb 16.2 H Hct 46.8 H D MCV 88.3 MCH 30.4 MCHC 34.5 RDW 14.7 Plt Count 398 D MPV 8.0 D Absolute Neuts (auto) 5.1 Neutrophils % 73.5 Lymphocytes % 18.2 D Monocytes % 7.6 Eosinophils % 0.1 D Basophils % 0.6 Nucleated RBC % 0 PT with INR INR Sodium 136 Potassium 4.7 Chloride 103 Carbon Dioxide 24 Anion Gap 10 BUN 48.8 H Creatinine 2.1 H Est GFR (CKD-EPI)AfAm 26.96 Est GFR (CKD-EPI)NonAf 23.26 POC Glucometer 115 Random Glucose 112 H Lactic Acid Calcium 10.4 H Total Bilirubin 0.9 AST 28 ALT 17 Alkaline Phosphatase 63 Creatine Kinase 68 Troponin I < 0.02 Total Protein 8.2 Albumin 4.0 Lipase 04/20/19 04/20/19 04/20/19 00:55 00:55 00:55 WBC RBC Hgb Hct MCV MCH MCHC RDW Plt Count MPV Absolute Neuts (auto) Neutrophils % Lymphocytes % Monocytes % Eosinophils % Basophils % Nucleated RBC % PT with INR 10.90 INR 0.92 Sodium Potassium Chloride Carbon Dioxide Anion Gap BUN Creatinine Est GFR (CKD-EPI)AfAm Est GFR (CKD-EPI)NonAf POC Glucometer Random Glucose Lactic Acid 1.8 Calcium Total Bilirubin AST ALT Alkaline Phosphatase Creatine Kinase Troponin I Total Protein Albumin Lipase 539 H ASSESSMENT/PLAN: 69F PMH HTN, CAD (s/p stent) PSA (crack cocaine, heroin, alcohol), who presents today from [facility] with acute encephalopthy 2/2 to overdose at [facility] and found to have new EKG changes. 1) Acute Encephalopathy 2/2 to likely overdose -Patient has hx of PSA ( cocaine, heroin, alcohol), was found down at [facility] and given narcan at [facility] and ED -Is oriented to self and place, but is increasingly somnolent -Head CT negative -Patient did not receive afternoon doses of librium due to drowsiness, and only 10 mg of methadone at [facility]. -Will hold further dosing of librium and methadone due to altered mental status and decreased respiratory rate -Urine toxicology ordered, f/u results -TSH, CPK ordered, f/u results -Addiction medicine consulted, appreciate recs for continued detox 2)Chest pain -Hx of CAD -Patient reports continued chest pain, describes it to be the same in nature as prior admission. -EKG has T-Wave inversion in Leads V3-V6, II and III -Continuous cardiac monitoring -Echo completed last admission showed normal LV and RV function, 60% EF -Initial troponin negative, repeat ordered, f/u -Serial EKG Q6H -Cardiology consulted, appreciate recs and if stress test is needed 3) JENNIFER -Creatinine today is 2.1, last labs show patient at baseline of 0.8 -no reported hx of CKD -Likely pre-renal due to dehydration and decreased PO intake -Hydrate with D5NS @ 100 ml/hr -F/U Urine lytes and U/A 4) Hx of HTN -Home meds of Carvedilol 6.25 mg PO BID, Losartan 50 mg PO , and Nifedipine 30 mg PO daily held due to initial hypotension -Follow up lipid profile -Will restart medications if patient remains HD stable F: D5NS @100 ml/hr E: Trend Mag, Phos, CMP N: NPO DVT: Heparin SQ TID Dispo: Admit to telemetry. ATTENDING PHYSICIAN STATEMENT I saw and evaluated the patient. I reviewed the resident's note and discussed the case with the resident. I agree with the resident's findings and plan as documented. SUBJECTIVE: OBJECTIVE: ASSESSMENT AND PLAN: <Chris Magaña - Last Filed: 04/20/19 06:35> CHIEF COMPLAINT: PCP: HISTORY OF PRESENT ILLNESS: ER course was notable for: (1) (2) (3) Recent Travel: PAST MEDICAL HISTORY: PAST SURGICAL HISTORY: Social History: Smoking: Alcohol: Drugs: Allergies No Known Allergies Allergy (Verified 04/20/19 00:38) HOME MEDICATIONS: Home Medications Medication Instructions Recorded Carvedilol [Coreg -] 6.25 mg PO BID #60 tablet 04/18/19 Losartan Potassium [Cozaar -] 50 mg PO DAILY #30 tablet 04/18/19 Nifedipine ER [Procardia XL -] 30 mg PO DAILY #30 tab.er.24 04/18/19 REVIEW OF SYSTEMS CONSTITUTIONAL: Absent: fever, chills, diaphoresis, generalized weakness, malaise, loss of appetite, weight change HEENT: Absent: rhinorrhea, nasal congestion, throat pain, throat swelling, difficulty swallowing, mouth swelling, ear pain, eye pain, visual changes CARDIOVASCULAR: Absent: chest pain, syncope, palpitations, irregular heart rate, lightheadedness , peripheral edema RESPIRATORY: Absent: cough, shortness of breath, dyspnea with exertion, orthopnea, wheezing, stridor, hemoptysis GASTROINTESTINAL: Absent: abdominal pain, abdominal distension, nausea, vomiting, diarrhea, constipation, melena, hematochezia GENITOURINARY: Absent: dysuria, frequency, urgency, hesitancy, hematuria, flank pain, genital pain MUSCULOSKELETAL: Absent: myalgia, arthralgia, joint swelling, back pain, neck pain SKIN: Absent: rash, itching, pallor HEMATOLOGIC/IMMUNOLOGIC: Absent: easy bleeding, easy bruising, lymphadenopathy, frequent infections ENDOCRINE: Absent: unexplained weight gain, unexplained weight loss, heat intolerance, cold intolerance NEUROLOGIC: Absent: headache, focal weakness or paresthesias, dizziness, unsteady gait, seizure, mental status changes, bladder or bowel incontinence PSYCHIATRIC: Absent: anxiety, depression, suicidal or homicidal ideation, hallucinations. PHYSICAL EXAMINATION Vital Signs - 24 hr 04/20/19 04/20/19 04/20/19 00:15 00:33 05:02 Temperature 96.1 F L 97.7 F 98.0 F Pulse Rate 43 L 73 Pulse Rate [ 88 Apical] Respiratory 9 L 22 H 19 Rate Blood Pressure 90/63 134/89 Blood Pressure 126/65 [Right Arm] O2 Sat by Pulse 94 L 99 98 Oximetry (%) GENERAL: Awake, alert, and fully oriented, in no acute distress. HEAD: Normal with no signs of trauma. EYES: Pupils equal, round and reactive to light, extraocular movements intact, sclera anicteric, conjunctiva clear. No lid lag. EARS, NOSE, THROAT: Ears normal, nares patent, oropharynx clear without exudates. Moist mucous membranes. NECK: Normal range of motion, supple without lymphadenopathy, JVD, or masses. LUNGS: Breath sounds equal, clear to auscultation bilaterally. No wheezes, and no crackles. No accessory muscle use. HEART: Regular rate and rhythm, normal S1 and S2 without murmur, rub or gallop. ABDOMEN: Soft, nontender, not distended, normoactive bowel sounds, no guarding, no rebound, no masses. No hepatomegaly or splenomegaly. MUSCULOSKELETAL: Normal range of motion at all joints. No bony deformities or tenderness. No CVA tenderness. UPPER EXTREMITIES: 2+ pulses, warm, well-perfused. No cyanosis. No clubbing. No peripheral edema. LOWER EXTREMITIES: 2+ pulses, warm, well-perfused. No calf tenderness. No peripheral edema. NEUROLOGICAL: Cranial nerves II-XII intact. Normal speech. Normal gait. PSYCHIATRIC: Cooperative. Good eye contact. Appropriate mood and affect. SKIN: Warm, dry, normal turgor, no rashes or lesions noted, normal capillary refill. Laboratory Results - last 24 hr 04/20/19 04/20/19 04/20/19 00:45 00:55 00:55 WBC 6.9 RBC 5.31 H Hgb 16.2 H Hct 46.8 H D MCV 88.3 MCH 30.4 MCHC 34.5 RDW 14.7 Plt Count 398 D MPV 8.0 D Absolute Neuts (auto) 5.1 Neutrophils % 73.5 Lymphocytes % 18.2 D Monocytes % 7.6 Eosinophils % 0.1 D Basophils % 0.6 Nucleated RBC % 0 PT with INR INR Sodium 136 Potassium 4.7 Chloride 103 Carbon Dioxide 24 Anion Gap 10 BUN 48.8 H Creatinine 2.1 H Est GFR (CKD-EPI)AfAm 26.96 Est GFR (CKD-EPI)NonAf 23.26 POC Glucometer 115 Random Glucose 112 H Lactic Acid Calcium 10.4 H Total Bilirubin 0.9 AST 28 ALT 17 Alkaline Phosphatase 63 Creatine Kinase 68 Troponin I < 0.02 Total Protein 8.2 Albumin 4.0 Lipase 04/20/19 04/20/19 04/20/19 00:55 00:55 00:55 WBC RBC Hgb Hct MCV MCH MCHC RDW Plt Count MPV Absolute Neuts (auto) Neutrophils % Lymphocytes % Monocytes % Eosinophils % Basophils % Nucleated RBC % PT with INR 10.90 INR 0.92 Sodium Potassium Chloride Carbon Dioxide Anion Gap BUN Creatinine Est GFR (CKD-EPI)AfAm Est GFR (CKD-EPI)NonAf POC Glucometer Random Glucose Lactic Acid 1.8 Calcium Total Bilirubin AST ALT Alkaline Phosphatase Creatine Kinase Troponin I Total Protein Albumin Lipase 539 H ASSESSMENT/PLAN: Visit type - Emergency Visit Emergency Visit: Yes ED Registration Date: 04/20/19 Care time: The patient presented to the Emergency Department on the above date and was hospitalized for further evaluation of their emergent condition. - New Patient This patient is new to me today: Yes Date on this admission: 04/20/19 - Critical Care Critical Care patient: No ATTENDING PHYSICIAN STATEMENT I saw and evaluated the patient. I reviewed the resident's note and discussed the case with the resident. I agree with the resident's findings and plan as documented.
[2019-04-20 08:21] LABS: HEMATOCRIT 36.6 % (32.4-45.2); HEMOGLOBIN 12.3 GM/dL (10.7-15.3); MCH 30.5 pg (25.7-33.7); MCHC 33.6 g/dl (32.0-36.0); MEAN CELL VOLUME 90.8 fl (80-96); MEAN PLT VOLUME 7.4 fl (7.5-11.1); PLATELET COUNT 273 K/MM3 (134-434); RBC 4.03 M/mm3 (3.60-5.2); RDW 14.5 % (11.6-15.6); WHITE BLOOD COUNT 5.3 K/mm3 (4.0-10.0)
[2019-04-20 08:52] LABS: ALBUMIN 1.9 g/dl (3.4-5.0); BILIRUBIN,TOTAL 0.5 mg/dL (0.2-1); CREATININE 1.5 mg/dL (0.55-1.3); MAGNESIUM 1.5 mg/dL (1.8-2.4); PHOSPHOROUS 2.1 mg/dL (2.5-4.9); TOT PROT 4.1 g/dl (6.4-8.2)
[2019-04-20] MEDS ORDERED: MAGNESIUM SULF 50% (8.12 MEQ/2 ML-1 GM VIAL) IVPB ONE (09:15)
[2019-04-20] MEDS ORDERED: D5-LR+20 MEQ KCL - 20 MEQ/1,000 ML INFUS.BAG IV SCH (09:15)
[2019-04-20] MEDS ORDERED: SODIUM CHLORIDE 0.9%/KCL 20 MEQ/1,000 ML INFUS.BAG IV SCH (09:15)
--- NOTE | 2019-04-20 09:30 | PN ---
Physical Exam: SUBJECTIVE: Patient seen and examined. She is lethargic but easily aroused. She denies chest pain, palpitations, SOB, abdominal pain, nausea. OBJECTIVE: Vital Signs Period Temp Pulse Resp BP Sys/Biswas Pulse Ox Last 24 Hr 96.1 F-98.0 F 43-88 9-22 90-134/63-89 94-99 GENERAL: The patient is lethargic, arousable, in no acute distress. LUNGS: Breath sounds equal, clear to auscultation bilaterally, no wheezes, no crackles, no accessory muscle use. HEART: Regular rate and rhythm, S1, S2 without murmur, rub or gallop. ABDOMEN: Soft, nontender, nondistended, normoactive bowel sounds, no guarding, no rebound, no hepatosplenomegaly, no masses. EXTREMITIES: 2+ pulses, warm, well-perfused, no edema. Laboratory Results - last 24 hr 04/20/19 04/20/19 04/20/19 00:45 00:55 00:55 WBC 6.9 RBC 5.31 H Hgb 16.2 H Hct 46.8 H D MCV 88.3 MCH 30.4 MCHC 34.5 RDW 14.7 Plt Count 398 D MPV 8.0 D Absolute Neuts (auto) 5.1 Neutrophils % 73.5 Lymphocytes % 18.2 D Monocytes % 7.6 Eosinophils % 0.1 D Basophils % 0.6 Nucleated RBC % 0 PT with INR INR Sodium 136 Potassium 4.7 Chloride 103 Carbon Dioxide 24 Anion Gap 10 BUN 48.8 H Creatinine 2.1 H Est GFR (CKD-EPI)AfAm 26.96 Est GFR (CKD-EPI)NonAf 23.26 POC Glucometer 115 Random Glucose 112 H Hemoglobin A1c % Lactic Acid Calcium 10.4 H Phosphorus Magnesium Total Bilirubin 0.9 AST 28 ALT 17 Alkaline Phosphatase 63 Creatine Kinase 68 Troponin I < 0.02 Total Protein 8.2 Albumin 4.0 Triglycerides Cholesterol Total LDL Cholesterol HDL Cholesterol Lipase TSH 04/20/19 04/20/19 04/20/19 00:55 00:55 00:55 WBC RBC Hgb Hct MCV MCH MCHC RDW Plt Count MPV Absolute Neuts (auto) Neutrophils % Lymphocytes % Monocytes % Eosinophils % Basophils % Nucleated RBC % PT with INR 10.90 INR 0.92 Sodium Potassium Chloride Carbon Dioxide Anion Gap BUN Creatinine Est GFR (CKD-EPI)AfAm Est GFR (CKD-EPI)NonAf POC Glucometer Random Glucose Hemoglobin A1c % Lactic Acid 1.8 Calcium Phosphorus Magnesium Total Bilirubin AST ALT Alkaline Phosphatase Creatine Kinase Troponin I Total Protein Albumin Triglycerides Cholesterol Total LDL Cholesterol HDL Cholesterol Lipase 539 H TSH 04/20/19 04/20/19 04/20/19 07:55 07:55 07:55 WBC 5.3 RBC 4.03 Hgb 12.3 Hct 36.6 D MCV 90.8 MCH 30.5 MCHC 33.6 RDW 14.5 Plt Count 273 D MPV 7.4 L Absolute Neuts (auto) Neutrophils % Lymphocytes % Monocytes % Eosinophils % Basophils % Nucleated RBC % PT with INR INR Sodium 145 Potassium 2.7 L* Chloride 120 H Carbon Dioxide 16 L Anion Gap 8 BUN 29.0 H Creatinine 1.5 H Est GFR (CKD-EPI)AfAm 40.49 Est GFR (CKD-EPI)NonAf 34.93 POC Glucometer Random Glucose 1412 H* Hemoglobin A1c % 4.6 Lactic Acid Calcium 5.6 L* Phosphorus 2.1 L Magnesium 1.5 L Total Bilirubin 0.5 AST 5 L ALT 7 L Alkaline Phosphatase 32 L Creatine Kinase Troponin I 0.02 Total Protein 4.1 L Albumin 1.9 L Triglycerides 96 Cholesterol 135 Total LDL Cholesterol 86 HDL Cholesterol 32 L Lipase TSH 0.28 L 04/20/19 04/20/19 07:55 07:55 WBC RBC Hgb Hct MCV MCH MCHC RDW Plt Count MPV Absolute Neuts (auto) Neutrophils % Lymphocytes % Monocytes % Eosinophils % Basophils % Nucleated RBC % PT with INR INR Sodium Potassium Chloride Carbon Dioxide Anion Gap BUN Creatinine Est GFR (CKD-EPI)AfAm Est GFR (CKD-EPI)NonAf POC Glucometer Random Glucose Hemoglobin A1c % Lactic Acid Calcium Phosphorus Magnesium Total Bilirubin AST ALT Alkaline Phosphatase Creatine Kinase 14 L 12 L Troponin I 0.02 Total Protein Albumin Triglycerides Cholesterol Total LDL Cholesterol HDL Cholesterol Lipase TSH Active Medications Generic Name Dose Route Start Last Admin Trade Name Freq PRN Reason Stop Dose Admin Heparin Sodium (Porcine) 5,000 unit 04/20/19 06:00 04/20/19 05:43 Heparin - SQ 5,000 unit TID SEBASTIAN Administration Potassium Chloride 10 meq in 100 mls @ 100 mls/hr 04/20/19 09:15 Potassium Chloride 10 Meq Premix Ivpb - IVPB 04/20/19 12:14 Q60M SEBASTIAN Potassium Chloride/Sodium Chloride 20 meq in 1,000 mls @ 100 mls/hr 04/20/19 09:15 Ns+20 Meq Kcl - IV ASDIR SEBASTIAN Magnesium Sulfate 2 gm 04/20/19 09:15 Magnesium Sulfate IVPB 04/20/19 09:16 ONCE ONE ASSESSMENT/PLAN: This is a 69 year old woman with a history of HTN, CAD, stent, substance abuse who was sent to the ED from [facility] after being found to be lethargic and hypotensive. 1. Acute metabolic encephalopathy likely secondary to overdose, dehydration/ hypovolemia - Treated with Narcan at [facility] - Head CT normal - Hold Librium, Methadone - IV fluid 2. Chest pain - Resolved - EKG with inferior and anterolateral T wave abnormalities - Troponin negative x2 - Continue telemetry monitoring - Echocardiogram (04/18) showed normal LV, LVEF 60%, normal LA, normal RA, normal RV, trace to mild MR, mild TR, impaired LV relaxation 3. Acute kidney injury - Secondary to dehydration/hypovolemia - Improving with IV fluid 4. Hyperglycemia - ? labs drawn from where D5LR infusing - Change IV fluid to LR - Check fingerstick and repeat BMP 5. Hypokalemia - Repeat BMP 6. Hypomagnesemia - Magnesium supplementation 7. HTN - Coreg, Cozaar, Procardia held secondary to hypotension 8. CAD, history of PCI with stent 9. Polysubstance abuse - Hold Librium secondary to encephalopathy - Start thiamine, folic acid, multivitamin Visit type - Emergency Visit Emergency Visit: Yes ED Registration Date: 04/20/19 Care time: The patient presented to the Emergency Department on the above date and was hospitalized for further evaluation of their emergent condition. - New Patient This patient is new to me today: Yes Date on this admission: 04/20/19 - Critical Care Critical Care patient: No - Discharge Referral Referred to [facility] No
[2019-04-20] MEDS ORDERED: MAGNESIUM SULF 50% (8.12 MEQ/2 ML-1 GM VIAL) ONE (09:57)
[2019-04-20 09:58] LABS: CALCIUM 5.6 mg/dL (8.5-10.1); POTASSIUM 2.7 mmol/L (3.5-5.1)
[2019-04-20 10:20] LABS: BLOOD UREA NITROGEN 38.7 mg/dL (7-18); CALCIUM 9.2 mg/dL (8.5-10.1); CREATININE 1.3 mg/dL (0.55-1.3); POTASSIUM 4.1 mmol/L (3.5-5.1)
[2019-04-20] MEDS: KCL 10 MEQ IVPB 10 MEQ/100 ML INFUS.BAG IVPB SCH ×2 (10:59→11:10)
[2019-04-20] MEDS: LACTATED RINGERS SOLUTION 1,000 ML/1,000 ML INFUS.BAG IV SCH (11:00)
--- NOTE | 2019-04-20 13:41 | EKG ---
Test Reason : Blood Pressure : / mmHG Vent. Rate : 079 BPM Atrial Rate : 079 BPM P-R Int : 118 ms QRS Dur : 078 ms QT Int : 408 ms P-R-T Axes : 086 071 091 degrees QTc Int : 467 ms NORMAL SINUS RHYTHM RIGHT ATRIAL ENLARGEMENT VOLTAGE CRITERIA FOR LEFT VENTRICULAR HYPERTROPHY ABNORMAL ECG WHEN COMPARED WITH ECG OF 20-APR-2019 01:22, T WAVE INVERSION NO LONGER EVIDENT IN INFERIOR LEADS Confirmed by CHECO SONI MD ([id number]) on 04/20/2019 1:40:59 PM Referred By: FATEMEH ROSALES Confirmed By:CHECO SONI MD
--- NOTE | 2019-04-20 14:18 | PN ---
[facility] Progress Note Note: received cardiology department call that Ms Ceja needs ekg order for Apr 17, 2019 1245 pm
--- NOTE | 2019-04-20 15:16 | EKG ---
Test Reason : Blood Pressure : / mmHG Vent. Rate : 082 BPM Atrial Rate : 082 BPM P-R Int : 126 ms QRS Dur : 064 ms QT Int : 386 ms P-R-T Axes : 079 078 094 degrees QTc Int : 450 ms NORMAL SINUS RHYTHM BIATRIAL ENLARGEMENT LEFT VENTRICULAR HYPERTROPHY CANNOT RULE OUT SEPTAL INFARCT , AGE UNDETERMINED T WAVE ABNORMALITY, CONSIDER INFERIOR ISCHEMIA T WAVE ABNORMALITY, CONSIDER ANTEROLATERAL ISCHEMIA ABNORMAL ECG WHEN COMPARED WITH ECG OF 17-APR-2019 17:21, NON-SPECIFIC CHANGE IN ST SEGMENT IN INFERIOR LEADS NON-SPECIFIC CHANGE IN ST SEGMENT IN ANTERIOR LEADS T WAVE INVERSION NOW EVIDENT IN INFERIOR LEADS T WAVE INVERSION NOW EVIDENT IN ANTEROLATERAL LEADS Confirmed by CHECO SONI MD ([id number]) on 04/20/2019 3:15:55 PM Referred By: Confirmed By:CHECO SONI MD
--- NOTE | 2019-04-20 17:18 | CON.CARD ---
Consult Consult Specialty:: Cardiology Reason for Consultation:: EKG changes - History of Present Illness Chief Complaint: Presently chest pain free History of Present Illness: This is a 69 year old female with a PMH of HTN, CAD (coronary stent placed in 2014), polysubstance abuse heroin and cocaine abuse (last used heroin this am, cocaine 2 days ago) and etoh abuse. Sent to the ED from [facility] for methadone overdose. She as seen here in the ED 04/17/2019 for chest pain and was d/c back to [facility]. Per [facility] note the patient was found lying in bed somnolent, lethargic with periods of falling asleep. pt states she feels nauseous, SOB and has not eaten in 2 days. EKG NSR at 82 BPM with LVH, ahd T wave inversions in leads II, III, aVF, V3, V4 , V5, and V6. Troponin negative Chest pain free - Past Medical History Cardio/Vascular: Yes: CAD, HTN Psych: Yes: Addictions - Past Surgical History Past Surgical History: Yes: Mastectomy - Alcohol/Substance Use Hx Alcohol Use: Yes History of Substance Use: reports: Cocaine, Heroin - Smoking History Smoking history: Unknown if ever smoked Have you smoked in the past 12 months: Yes Aproximately how many cigarettes per day: 10 Home Medications - Allergies Allergies/Adverse Reactions: Allergies Allergy/AdvReac Type Severity Reaction Status Date / Time No Known Allergies Allergy Verified 04/20/19 00:38 - Home Medications Home Medications: Ambulatory Orders Carvedilol [Coreg -] 6.25 mg PO BID #60 tablet 04/18/19 Losartan Potassium [Cozaar -] 50 mg PO DAILY #30 tablet 04/18/19 Nifedipine ER [Procardia XL -] 30 mg PO DAILY #30 tab.er.24 04/18/19 Vital Signs: Vital Signs Temperature 98.3 F 04/20/19 13:01 Pulse Rate 81 04/20/19 13:01 Respiratory Rate 20 04/20/19 13:01 Blood Pressure 110/83 04/20/19 13:01 O2 Sat by Pulse Oximetry (%) 98 04/20/19 05:02 Constitutional: Yes: Poor Hygeine, Thin Eyes: Yes: WNL HENT: Yes: WNL Neck: Yes: WNL Respiratory: Yes: CTA Bilaterally Gastrointestinal: Yes: Soft Cardiovascular: Yes: Regular Rate and Rhythm Heart Sounds: Yes: S1, S2 Edema: No Neurological: Yes: Alert, Oriented - Other Data Labs, Other Data: CBC, BMP 04/20/19 07:55 04/20/19 09:29 INR, PTT INR 0.92 (0.83-1.09) 04/20/19 00:55 Troponin, BNP 04/20/19 04/20/19 04/20/19 00:55 07:55 07:55 Troponin I < 0.02 0.02 0.02 Troponin, BNP 04/20/19 04/20/19 04/20/19 00:55 07:55 07:55 Troponin I < 0.02 0.02 0.02 Assessment/Plan 69 year old female with a PMH of HTN, CAD (coronary stent placed in 2014), polysubstance abuse heroin and cocaine abuse (last used heroin this am, cocaine 2 days ago) and etoh abuse. Sent to the ED from [facility] for methadone overdose. She as seen here in the ED 04/17/2019 for chest pain and was d/c back to [facility]. Per [facility] note the patient was found lying in bed somnolent, lethargic with periods of falling asleep. pt states she feels nauseous, SOB and has not eaten in 2 days. EKG NSR at 82 BPM with LVH, and T wave inversions in leads II, III, aVF, V3, V4 , V5, and V6. Troponin negative Chest pain free UTox is pending Recommend: Would not start beta blockers given the history of cocaine use Cardiac enzymes are negative Would obtain an echocardiogram Would not send for a stress test untill she is Utox negative (especially cocaine ) Hold BP meds for now Active Medications Heparin Sodium (Porcine) (Heparin -) 5,000 unit SQ TID [facility] Last Admin: 04/20/19 15:13 Dose: 5,000 unit Lactated Ringer's (Lactated Ringers Solution) 1,000 ml in 1,000 mls @ 83 mls/ hr IV ASDIR [facility] Last Admin: 04/20/19 11:00 Dose: 83 mls/hr Home Medications Medication Instructions Recorded Carvedilol [Coreg -] 6.25 mg PO BID #60 tablet 04/18/19 Losartan Potassium [Cozaar -] 50 mg PO DAILY #30 tablet 04/18/19 Nifedipine ER [Procardia XL -] 30 mg PO DAILY #30 tab.er.24 04/18/19
[2019-04-20] MEDS ORDERED: MELATONIN 5 MG TABLETS PO ONE (20:26)
[2019-04-20] MEDS ORDERED: MELATONIN 5 MG TABLETS ONE (20:35)
[2019-04-21] MEDS: HEPARIN NA (PORCINE) 5,000 UNITS/ML 1ML VIAL SQ SCH ×3 (06:20→22:28)
[2019-04-21 07:53] LABS: BASO % 0.6 % (0-2.0); EOS % 1.1 % (0-4.5); HEMATOCRIT 33.4 % (32.4-45.2); HEMOGLOBIN 11.7 GM/dL (10.7-15.3); LYMPH % 29.9 % (8-40); MCH 30.5 pg (25.7-33.7); MCHC 34.9 g/dl (32.0-36.0); MEAN CELL VOLUME 87.4 fl (80-96); MEAN PLT VOLUME 7.4 fl (7.5-11.1); MONO % 9.8 % (3.8-10.2); NEUT % 58.6 % (42.8-82.8); PLATELET COUNT 237 K/MM3 (134-434); RBC 3.83 M/mm3 (3.60-5.2); RDW 14.3 % (11.6-15.6); WHITE BLOOD COUNT 3.3 K/mm3 (4.0-10.0)
[2019-04-21 08:26] LABS: ALBUMIN 2.7 g/dl (3.4-5.0); BILIRUBIN,TOTAL 0.6 mg/dL (0.2-1); BLOOD UREA NITROGEN 29.9 mg/dL (7-18); CALCIUM 8.3 mg/dL (8.5-10.1); CREATININE 0.9 mg/dL (0.55-1.3); MAGNESIUM 2.1 mg/dL (1.8-2.4); PHOSPHOROUS 2.2 mg/dL (2.5-4.9); POTASSIUM 3.8 mmol/L (3.5-5.1); TOT PROT 5.5 g/dl (6.4-8.2)
[2019-04-21] MEDS: THIAMINE HCL 100 MG TABLET (FP) PO SCH (09:44)
[2019-04-21] MEDS: FOLIC ACID 1 MG TABLET (FP) PO SCH (09:44)
[2019-04-21] MEDS: MULTIVITAMINS THER W-MINERALS COMBO TABLET (FP) PO SCH (09:44)
[2019-04-21] MEDS ORDERED: POTASSIUM PHOSPHATE 30 MM in DEXTROSE 5%-WATER - 500 ML IVPB ONE (11:00)
[2019-04-21] MEDS: ASPIRIN COATED 81 MG TABLET.EC PO SCH (11:10)
[2019-04-21] MEDS ORDERED: ASPIRIN COATED 81 MG TABLET.EC ONE (11:18)
[2019-04-21] MEDS: LACTATED RINGERS SOLUTION 1,000 ML/1,000 ML INFUS.BAG IV SCH (13:34)
[2019-04-21 16:18] LABS: COCAINE, UR NEGATIVE ng/ml (CUTOFF=300); OPIATES, URI NEGATIVE ng/ml (CUTOFF=300); PHENCYCLIDINE,URINE NEGATIVE ng/ml (CUTOFF=25); URINE AMPHETAMINES NEGATIVE ng/ml (CUTOFF=500); URINE BARBITURATES NEGATIVE ng/ml (CUTOFF=200)
[2019-04-21 16:28] LABS: METHADONE, UR POSITIVE ng/ml (CUTOFF=300); URINE BENZODIAZEPINES POSITIVE ng/ml (CUTOFF=200)
--- NOTE | 2019-04-21 17:02 | PN ---
Physical Exam: SUBJECTIVE: Patient seen and examined. Exhibiting increased lethargy and feeling very hungry per patient. She wants ensure. Initially was refusing testing and Kphos supplement but after speaking with her she decided to agree. OBJECTIVE: Vital Signs Period Temp Pulse Resp BP Sys/Biswas Pulse Ox Last 24 Hr 97.6 F-99.0 F 57-79 16-20 111-118/61-79 96-98 GENERAL: The patient is somnolent, lethargic but AO X3. LUNGS: Breath sounds equal, clear to auscultation bilaterally, no wheezes, no crackles, no accessory muscle use. HEART: Regular rate and rhythm, S1, S2 without murmur, rub or gallop. ABDOMEN: Soft, nontender, nondistended. EXTREMITIES: 2+ pulses, warm, well-perfused, no edema. NEUROLOGICAL: Cranial nerves II through XII grossly intact. Normal speech, gait not observed. PSYCH: Normal mood, normal affect. Laboratory Results - last 24 hr 04/20/19 04/21/19 04/21/19 17:31 05:56 07:15 WBC 3.3 L RBC 3.83 Hgb 11.7 Hct 33.4 MCV 87.4 MCH 30.5 MCHC 34.9 RDW 14.3 Plt Count 237 MPV 7.4 L Absolute Neuts (auto) 1.9 Neutrophils % 58.6 D Lymphocytes % 29.9 D Monocytes % 9.8 Eosinophils % 1.1 D Basophils % 0.6 Nucleated RBC % 0 Sodium Potassium Chloride Carbon Dioxide Anion Gap BUN Creatinine Est GFR (CKD-EPI)AfAm Est GFR (CKD-EPI)NonAf POC Glucometer 105 85 Random Glucose Calcium Phosphorus Magnesium Total Bilirubin AST ALT Alkaline Phosphatase Total Protein Albumin Triglycerides Cholesterol Total LDL Cholesterol HDL Cholesterol Free T4 Ur Random Sodium Ur Random Potassium Ur Random Chloride Opiates Screen Methadone Screen Barbiturate Screen Phencyclidine Screen Ur Amphetamines Screen MDMA (Ecstasy) Screen Benzodiazepines Screen Cocaine Screen U Marijuana (THC) Screen 04/21/19 04/21/19 04/21/19 07:15 15:20 15:20 WBC RBC Hgb Hct MCV MCH MCHC RDW Plt Count MPV Absolute Neuts (auto) Neutrophils % Lymphocytes % Monocytes % Eosinophils % Basophils % Nucleated RBC % Sodium 140 Potassium 3.8 Chloride 110 H Carbon Dioxide 25 Anion Gap 5 L BUN 29.9 H Creatinine 0.9 Est GFR (CKD-EPI)AfAm 75.08 Est GFR (CKD-EPI)NonAf 64.78 POC Glucometer Random Glucose 91 Calcium 8.3 L Phosphorus 2.2 L Magnesium 2.1 Total Bilirubin 0.6 AST 11 L ALT 12 L Alkaline Phosphatase 44 L Total Protein 5.5 L Albumin 2.7 L Triglycerides 107 Cholesterol 176 Total LDL Cholesterol 111 H HDL Cholesterol 44 Free T4 1.15 Ur Random Sodium 64 Ur Random Potassium 18.0 L Ur Random Chloride 66 L Opiates Screen Negative Methadone Screen Positive A* Barbiturate Screen Negative Phencyclidine Screen Negative Ur Amphetamines Screen Negative MDMA (Ecstasy) Screen Negative Benzodiazepines Screen Positive A* Cocaine Screen Negative U Marijuana (THC) Screen Negative 04/21/19 16:47 WBC RBC Hgb Hct MCV MCH MCHC RDW Plt Count MPV Absolute Neuts (auto) Neutrophils % Lymphocytes % Monocytes % Eosinophils % Basophils % Nucleated RBC % Sodium Potassium Chloride Carbon Dioxide Anion Gap BUN Creatinine Est GFR (CKD-EPI)AfAm Est GFR (CKD-EPI)NonAf POC Glucometer 93 Random Glucose Calcium Phosphorus Magnesium Total Bilirubin AST ALT Alkaline Phosphatase Total Protein Albumin Triglycerides Cholesterol Total LDL Cholesterol HDL Cholesterol Free T4 Ur Random Sodium Ur Random Potassium Ur Random Chloride Opiates Screen Methadone Screen Barbiturate Screen Phencyclidine Screen Ur Amphetamines Screen MDMA (Ecstasy) Screen Benzodiazepines Screen Cocaine Screen U Marijuana (THC) Screen Active Medications Generic Name Dose Route Start Last Admin Trade Name Freq PRN Reason Stop Dose Admin Aspirin 81 mg 04/21/19 10:15 04/21/19 11:10 Ecotrin - PO 81 mg DAILY SEBASTIAN Administration Folic Acid 1 mg 04/21/19 10:00 04/21/19 09:44 Folic Acid - PO 1 mg DAILY SEBASTIAN Administration Heparin Sodium (Porcine) 5,000 unit 04/20/19 06:00 04/21/19 13:39 Heparin - SQ 5,000 unit TID SEBASTIAN Administration Potassium Phosphate 30 mm/ 510 mls @ 62.5 mls/hr 04/21/19 11:00 04/21/19 11: 30 Dextrose IVPB 04/21/19 19:09 62.5 mls/hr ONCE ONE Administration Multivitamins/Minerals 1 each 04/21/19 10:00 04/21/19 09:44 Theragran-M PO 1 each DAILY SEBASTIAN Administration Thiamine HCl 100 mg 04/21/19 10:00 04/21/19 09:44 Vitamin B1 - PO 100 mg DAILY SEBASTIAN Administration ASSESSMENT/PLAN: This is a 69 y/o F with a PMHx of HTN, CAD (s/p stent) PSA (crack cocaine, heroin, alcohol), who presents today from [facility] with acute encephalopathy 2/ 2 to overdose at [facility] with chest pain, found to have new EKG changes. 1) Acute Encephalopathy 2/2 to likely overdose -Head CT negative -Patient not given methadone today after confirming with Dr Leija she is not on methadone. -holding librium/ativan -Urine toxicology positive for methadone and benzos -TSH 0.28 (low), T4 (normal) likely subacute hyperthyroidism. CPK ordered- High , -Addiction medicine consulted, appreciate recs for continued detox 2)Chest pain -Hx of CAD -Patient reports continued chest pain, describes it to be the same in nature as prior admission. -EKG has T-Wave inversion in Leads V3-V6, II and III -Continuous cardiac monitoring -Echo completed last admission showed normal LV and RV function, 60% EF -3 troponins negative, cardio believes stress test can be done only after Utox negative as o/p. 3) JENNIFER -Creatinine today is 0.9, last labs show patient at baseline of 0.8 -Likely pre-renal due to dehydration and decreased PO intake - monitor off fluids 4) Hx of HTN -Home meds of Carvedilol 6.25 mg PO BID, Losartan 50 mg PO , and Nifedipine 30 mg PO daily held due to initial hypotension - lipid profile wnl -Will restart medications if patient remains HD stable #Abdominal Pain - CT abd pelvis with oral and IV contrast - extra and intrehepatic dilation noted, 1.5 cm dilated CBD - will obtain MRCP to assess. F: D5NS @100 ml/hr E: Trend Mag, Phos, CMP N: NPO DVT: Heparin SQ TID Visit type - Emergency Visit Emergency Visit: Yes ED Registration Date: 04/20/19 Care time: The patient presented to the Emergency Department on the above date and was hospitalized for further evaluation of their emergent condition. - New Patient This patient is new to me today: Yes Date on this admission: 04/21/19 - Critical Care Critical Care patient: No - Discharge Referral Referred to [facility] No ATTENDING PHYSICIAN STATEMENT I saw and evaluated the patient. I reviewed the resident's note and discussed the case with the resident. I agree with the resident's findings and plan as documented. SUBJECTIVE: OBJECTIVE: ASSESSMENT AND PLAN:
--- NOTE | 2019-04-21 19:09 | PN ---
Teaching Attending Note Name of Resident: Haroon Jackson ATTENDING PHYSICIAN STATEMENT I saw and evaluated the patient. I reviewed the resident's note and discussed the case with the resident. I agree with the resident's findings and plan as documented. SUBJECTIVE: Awake, poor historian. Intermittent Left sided chest pain. No palpitations, SOB. OBJECTIVE: Afebrile, Hemodynamically Stable. Last Vital Signs Temp Pulse Resp BP Pulse Ox 97.9 F 71 18 115/71 98 04/21/19 15:07 04/21/19 15:07 04/21/19 15:07 04/21/19 15:07 04/21/19 15:07 HEENT - Atraumatic, Normocephalic. Heart - S1, S2, RRR Lungs - clear to auscultation Abdomen - Soft, generalized tenderness. Bowel Sounds normal. Extremities - No edema, no calf tenderness. Laboratory Results - last 24 hr 04/21/19 04/21/19 04/21/19 05:56 07:15 07:15 WBC 3.3 L RBC 3.83 Hgb 11.7 Hct 33.4 MCV 87.4 MCH 30.5 MCHC 34.9 RDW 14.3 Plt Count 237 MPV 7.4 L Absolute Neuts (auto) 1.9 Neutrophils % 58.6 D Lymphocytes % 29.9 D Monocytes % 9.8 Eosinophils % 1.1 D Basophils % 0.6 Nucleated RBC % 0 Sodium 140 Potassium 3.8 Chloride 110 H Carbon Dioxide 25 Anion Gap 5 L BUN 29.9 H Creatinine 0.9 Est GFR (CKD-EPI)AfAm 75.08 Est GFR (CKD-EPI)NonAf 64.78 POC Glucometer 85 Random Glucose 91 Calcium 8.3 L Phosphorus 2.2 L Magnesium 2.1 Total Bilirubin 0.6 AST 11 L ALT 12 L Alkaline Phosphatase 44 L Total Protein 5.5 L Albumin 2.7 L Triglycerides 107 Cholesterol 176 Total LDL Cholesterol 111 H HDL Cholesterol 44 Free T4 1.15 Ur Random Sodium Ur Random Potassium Ur Random Chloride Opiates Screen Methadone Screen Barbiturate Screen Phencyclidine Screen Ur Amphetamines Screen MDMA (Ecstasy) Screen Benzodiazepines Screen Cocaine Screen U Marijuana (THC) Screen 04/21/19 04/21/19 04/21/19 15:20 15:20 16:47 WBC RBC Hgb Hct MCV MCH MCHC RDW Plt Count MPV Absolute Neuts (auto) Neutrophils % Lymphocytes % Monocytes % Eosinophils % Basophils % Nucleated RBC % Sodium Potassium Chloride Carbon Dioxide Anion Gap BUN Creatinine Est GFR (CKD-EPI)AfAm Est GFR (CKD-EPI)NonAf POC Glucometer 93 Random Glucose Calcium Phosphorus Magnesium Total Bilirubin AST ALT Alkaline Phosphatase Total Protein Albumin Triglycerides Cholesterol Total LDL Cholesterol HDL Cholesterol Free T4 Ur Random Sodium 64 Ur Random Potassium 18.0 L Ur Random Chloride 66 L Opiates Screen Negative Methadone Screen Positive A* Barbiturate Screen Negative Phencyclidine Screen Negative Ur Amphetamines Screen Negative MDMA (Ecstasy) Screen Negative Benzodiazepines Screen Positive A* Cocaine Screen Negative U Marijuana (THC) Screen Negative Current Medications Generic Name Dose Route Start Last Admin Trade Name Freq PRN Reason Stop Dose Admin Aspirin 81 mg 04/21/19 10:15 04/21/19 11:10 Ecotrin - PO 81 mg DAILY SEBASTIAN Administration Folic Acid 1 mg 04/21/19 10:00 04/21/19 09:44 Folic Acid - PO 1 mg DAILY SEBASTIAN Administration Heparin Sodium (Porcine) 5,000 unit 04/20/19 06:00 04/21/19 13:39 Heparin - SQ 5,000 unit TID SEBASTIAN Administration Potassium Phosphate 30 mm/ 510 mls @ 62.5 mls/hr 04/21/19 11:00 04/21/19 11: 30 Dextrose IVPB 04/21/19 19:09 62.5 mls/hr ONCE ONE Administration Multivitamins/Minerals 1 each 04/21/19 10:00 04/21/19 09:44 Theragran-M PO 1 each DAILY SEBASTIAN Administration Thiamine HCl 100 mg 04/21/19 10:00 04/21/19 09:44 Vitamin B1 - PO 100 mg DAILY SEBASTIAN Administration Home Medications Medication Instructions Recorded Carvedilol [Coreg -] 6.25 mg PO BID #60 tablet 04/18/19 Losartan Potassium [Cozaar -] 50 mg PO DAILY #30 tablet 04/18/19 Nifedipine ER [Procardia XL -] 30 mg PO DAILY #30 tab.er.24 04/18/19 Acetaminophen [Tylenol] 650 mg PO Q6H PRN 04/21/19 Bismuth Subsalicylate 30 ml PO Q1H PRN 04/21/19 [Pepto-Bismol -] Ibuprofen [Motrin -] 400 mg PO PRN PRN 04/21/19 Mag Hydrox/Al Hydrox/Simeth 30 ml PO Q6H PRN 04/21/19 [Mylanta Oral Suspension -] Magnesium Hydrox 2400MG/30Ml [Milk 30 ml PO PRN PRN 04/21/19 of Magnesia -] Melatonin 5 mg PO HS PRN 04/21/19 Menthol/Phenol [Cepastat Lozenge -] 1 each PO Q4H PRN 04/21/19 Thiamine HCl [Vitamin B-1] 100 mg PO HS 04/21/19 ASSESSMENT/PLAN 69 year old female with history of HTN, CAD s/p PCI/Stent, Polysubstance abuse ( crack cocaine, heroin) who was sent to the ED from [facility] after being found to be lethargic and hypotensive. 1. Acute Metabolic Encephalopathy likely secondary to overdose, dehydration/ hypovolemia s/p Narcan CT Head - normal. Librium, Methadone held currently. IV hydration. 2. Chest Pain ?cocaine related. TropI neg x 3. EKG with inferior and anterolateral T wave abnormalities Telemonitoring Echocardiogram (04/18) showed normal LV, LVEF 60%, normal LA, normal RA, normal RV, trace to mild MR, mild TR, impaired LV relaxation Further management as per Cardio 3. Acute Kidney Injury - secondary to dehydration/hypovolemia. Improved with IV fluids. 4. HTN - Coreg, Losartan, Nifedipine held secondary to hypotension 5. CAD s/p PCI/Stent 6. Polysubstance Abuse (crack cocaine, heroin) - LIbrium held due to encephalopathy. Thiamine, Folic Acid, MVI. 7. Non-specific abdominal pain - etiology unclear ? withdrawals CT A/P requested. 8. Low TSH, normal free T4 - repeat in 3-4 weeks. DVT Px - Heparin SQ
[2019-04-21] MEDS ORDERED: MELATONIN 5 MG TABLETS PO ONE (22:03)
[2019-04-22] MEDS: HEPARIN NA (PORCINE) 5,000 UNITS/ML 1ML VIAL SQ SCH ×3 (06:44→22:48)
[2019-04-22 07:05] LABS: EOS % 1.1 % (0-4.5); HEMOGLOBIN 11.8 GM/dL (10.7-15.3); LYMPH % 33.6 % (8-40); MCH 30.6 pg (25.7-33.7); MCHC 34.6 g/dl (32.0-36.0); MEAN CELL VOLUME 88.3 fl (80-96); MEAN PLT VOLUME 7.4 fl (7.5-11.1); MONO % 11.7 % (3.8-10.2); NEUT % 52.6 % (42.8-82.8); PLATELET COUNT 232 K/MM3 (134-434); RBC 3.86 M/mm3 (3.60-5.2); RDW 14.3 % (11.6-15.6)
[2019-04-22 07:42] LABS: ALBUMIN 2.9 g/dl (3.4-5.0); BILIRUBIN,TOTAL 0.2 mg/dL (0.2-1); BLOOD UREA NITROGEN 18.8 mg/dL (7-18); CALCIUM 8.9 mg/dL (8.5-10.1); CREATININE 0.8 mg/dL (0.55-1.3); POTASSIUM 4.2 mmol/L (3.5-5.1); TOT PROT 5.6 g/dl (6.4-8.2)
[2019-04-22] MEDS: MULTIVITAMINS THER W-MINERALS COMBO TABLET (FP) PO SCH (09:34)
[2019-04-22] MEDS: ASPIRIN COATED 81 MG TABLET.EC PO SCH (09:34)
[2019-04-22] MEDS: FOLIC ACID 1 MG TABLET (FP) PO SCH (09:34)
[2019-04-22] MEDS: THIAMINE HCL 100 MG TABLET (FP) PO SCH (09:34)
--- NOTE | 2019-04-22 12:31 | PN ---
Progress Note (short form) - Note Progress Note: GI CONSULT DICTATED - MRCP ORDERED TO FURTEHR EVALUATE THE BILIARY TREE
--- NOTE | 2019-04-22 13:00 | CONS ---
DATE OF CONSULTATION: DATE OF DICTATION: 04/22/2019 GASTROENTEROLOGY CONSULTATION HISTORY OF PRESENT ILLNESS: Patient is a 69-year-old female, past medical history of hypertension, CAD, stents, PSA including cocaine, heroin and alcohol abuse, who was admitted from the [facility] after being found unconscious. She was there for detox. In the ER she did complain of chest pressure and chest pain. She is a very poor historian. Denies any abdominal pain, nausea, vomiting, diarrhea, constipation, blood in the stool. She has never had an endoscopic evaluation in the past. ADDITIONAL PAST SURGICAL HISTORY: A left mastectomy for breast sarcoma. SOCIAL HISTORY: No cigarette use. Drinks 4 cans of beer daily and again uses cocaine 4-5 bags daily and heroin 8 bags daily. FAMILY HISTORY: Unable to obtain. ALLERGIES: No known drug allergies. REVIEW OF SYSTEMS: Limited as per the HPI. PHYSICAL EXAMINATION:Vital Signs: Temperature 97, pulse 71, blood pressure 135/81, respiratory rate 18, oxygen saturation 98% on room air. General: In no acute distress. HEENT: Anicteric sclerae. Cardiovascular: S1, S2, regular rate and rhythm. Lungs: Bilaterally clear to auscultation anteriorly. Abdomen: Soft, nontender. Extremities: No edema. LABORATORIES: White blood cell count 3, hemoglobin 11, hematocrit 34, MCV 88, platelet count 232. INR 0.9. Sodium 142, potassium 4.2, BUN 18, creatinine 0.8, glucose 100. Total bilirubin 0.6, AST 11, ALT 12, alkaline phosphatase 44. Toxicology screen was positive for methadone and benzodiazepine. She underwent an abdomen and pelvis CT scan for vague complaints of abdominal pain on April 21. Study was done with contrast and revealed extrahepatic and intrahepatic biliary ductal dilatation, mild dilation of the main pancreatic duct, gallbladder contraction, questionable physiologic versus chronic cholecystitis. IMPRESSION: Vague abdominal discomfort reported, also with imaging findings of dilated biliary tree. RECOMMENDATIONS: Would recommend an MRCP to further evaluate the biliary tree. Trend liver tests daily while hospitalized. Considering she has a normal white blood cell count and her liver tests are within normal I doubt she has acute or chronic cholecystitis at this time; however, would obtain the additional imaging to exclude. Continue diet as tolerated and medical regimen as per primary medical team. DO RAKEL GARCIA/[id number]
--- NOTE | 2019-04-22 13:28 | PN ---
Teaching Attending Note Name of Resident: Haroon Jackson ATTENDING PHYSICIAN STATEMENT I saw and evaluated the patient. I reviewed the resident's note and discussed the case with the resident. I agree with the resident's findings and plan as documented. SUBJECTIVE: Awake, no further CP. No palpitations, SOB. reports abdominal pain. Tolerating oral intake. No nausea/vomiting. OBJECTIVE: Afebrile, Hemodynamically Stable. AAO x 3. Last Vital Signs Temp Pulse Resp BP Pulse Ox 97.9 F 71 18 135/81 98 04/22/19 10:00 04/22/19 10:00 04/22/19 10:00 04/22/19 10:00 04/22/19 09:00 HEENT - Atraumatic, Normocephalic. Heart - S1, S2, RRR Lungs - clear to auscultation Abdomen - Soft, generalized tenderness. Bowel Sounds normal. Extremities - No edema, no calf tenderness. Laboratory Results - last 24 hr 04/21/19 04/21/19 04/21/19 15:20 15:20 16:47 WBC RBC Hgb Hct MCV MCH MCHC RDW Plt Count MPV Absolute Neuts (auto) Neutrophils % Lymphocytes % Monocytes % Eosinophils % Basophils % Nucleated RBC % Sodium Potassium Chloride Carbon Dioxide Anion Gap BUN Creatinine Est GFR (CKD-EPI)AfAm Est GFR (CKD-EPI)NonAf POC Glucometer 93 Random Glucose Calcium Total Bilirubin AST ALT Alkaline Phosphatase Total Protein Albumin Ur Random Sodium 64 Ur Random Potassium 18.0 L Ur Random Chloride 66 L Opiates Screen Negative Methadone Screen Positive A* Barbiturate Screen Negative Phencyclidine Screen Negative Ur Amphetamines Screen Negative MDMA (Ecstasy) Screen Negative Benzodiazepines Screen Positive A* Cocaine Screen Negative U Marijuana (THC) Screen Negative 04/22/19 04/22/19 04/22/19 01:17 06:34 06:34 WBC 3.0 L RBC 3.86 Hgb 11.8 Hct 34.0 MCV 88.3 MCH 30.6 MCHC 34.6 RDW 14.3 Plt Count 232 MPV 7.4 L Absolute Neuts (auto) 1.6 Neutrophils % 52.6 Lymphocytes % 33.6 Monocytes % 11.7 H Eosinophils % 1.1 Basophils % 1.0 Nucleated RBC % 0 Sodium 142 Potassium 4.2 Chloride 111 H Carbon Dioxide 26 Anion Gap 5 L BUN 18.8 H Creatinine 0.8 Est GFR (CKD-EPI)AfAm 86.57 Est GFR (CKD-EPI)NonAf 74.70 POC Glucometer 120 Random Glucose 100 Calcium 8.9 Total Bilirubin 0.2 AST 12 L ALT 13 Alkaline Phosphatase 45 Total Protein 5.6 L Albumin 2.9 L Ur Random Sodium Ur Random Potassium Ur Random Chloride Opiates Screen Methadone Screen Barbiturate Screen Phencyclidine Screen Ur Amphetamines Screen MDMA (Ecstasy) Screen Benzodiazepines Screen Cocaine Screen U Marijuana (THC) Screen 04/22/19 06:35 WBC RBC Hgb Hct MCV MCH MCHC RDW Plt Count MPV Absolute Neuts (auto) Neutrophils % Lymphocytes % Monocytes % Eosinophils % Basophils % Nucleated RBC % Sodium Potassium Chloride Carbon Dioxide Anion Gap BUN Creatinine Est GFR (CKD-EPI)AfAm Est GFR (CKD-EPI)NonAf POC Glucometer 102 Random Glucose Calcium Total Bilirubin AST ALT Alkaline Phosphatase Total Protein Albumin Ur Random Sodium Ur Random Potassium Ur Random Chloride Opiates Screen Methadone Screen Barbiturate Screen Phencyclidine Screen Ur Amphetamines Screen MDMA (Ecstasy) Screen Benzodiazepines Screen Cocaine Screen U Marijuana (THC) Screen Current Medications Generic Name Dose Route Start Last Admin Trade Name Freq PRN Reason Stop Dose Admin Aspirin 81 mg 04/21/19 10:15 04/22/19 09:34 Ecotrin - PO 81 mg DAILY SEBASTIAN Administration Folic Acid 1 mg 04/21/19 10:00 04/22/19 09:34 Folic Acid - PO 1 mg DAILY SEBASTIAN Administration Heparin Sodium (Porcine) 5,000 unit 04/20/19 06:00 04/22/19 06:44 Heparin - SQ 5,000 unit TID SEBASTIAN Administration Multivitamins/Minerals 1 each 04/21/19 10:00 04/22/19 09:34 Theragran-M PO 1 each DAILY SEBASTIAN Administration Thiamine HCl 100 mg 04/21/19 10:00 04/22/19 09:34 Vitamin B1 - PO 100 mg DAILY SEBASTIAN Administration Home Medications Medication Instructions Recorded Carvedilol [Coreg -] 6.25 mg PO BID #60 tablet 04/18/19 Losartan Potassium [Cozaar -] 50 mg PO DAILY #30 tablet 04/18/19 Nifedipine ER [Procardia XL -] 30 mg PO DAILY #30 tab.er.24 04/18/19 Acetaminophen [Tylenol] 650 mg PO Q6H PRN 02/14/20 Bismuth Subsalicylate 30 ml PO Q1H PRN 04/21/19 [Pepto-Bismol -] Ibuprofen [Motrin -] 400 mg PO PRN PRN 04/21/19 Mag Hydrox/Al Hydrox/Simeth 30 ml PO Q6H PRN 04/21/19 [Mylanta Oral Suspension -] Magnesium Hydrox 2400MG/30Ml [Milk 30 ml PO PRN PRN 04/21/19 of Magnesia -] Melatonin 5 mg PO HS PRN 04/21/19 Menthol/Phenol [Cepastat Lozenge -] 1 each PO Q4H PRN 04/21/19 Thiamine HCl [Vitamin B-1] 100 mg PO HS 04/21/19 ASSESSMENT/PLAN 69 year old female with history of HTN, CAD s/p PCI/Stent, Polysubstance abuse ( crack cocaine, heroin) who was sent to the ED from [facility] after being found to be lethargic and hypotensive. 1. Acute Metabolic/Toxic Encephalopathy secondary to overdose, dehydration/ hypovolemia s/p Narcan CT Head - normal. Librium, Methadone held currently. IV hydration. 2. Chest Pain ?cocaine related, no evidence of ACS, Background CAD s/p PCI/ Stent. TropI neg x 3. EKG with inferior and anterolateral T wave abnormalities Echocardiogram (04/18) showed normal LV, LVEF 60%, normal LA, normal RA, normal RV, trace to mild MR, mild TR, impaired LV relaxation Telemonitoring Resumed on BB. Further management as per Cardio 3. Acute Kidney Injury - secondary to dehydration/hypovolemia. Improved with IV fluids. 4. HTN - Coreg, Losartan, Nifedipine held secondary to hypotension. Resume Coreg. Will restart Losartan, Nifedipine once BP rebounds. 5. Polysubstance Abuse (crack cocaine, heroin) - LIbrium held due to encephalopathy. Thiamine, Folic Acid, MVI. 6. Non-specific abdominal pain - etiology unclear ? withdrawals CT A/P - extra-/intra-hepatic dilatation, mild dilatation of the pancreatic duct. Evaluated by GI - MRCP requested. Continue regular diet. 7. Low TSH, normal free T4 - repeat in 3-4 weeks. DVT Px - Heparin SQ
[2019-04-22] MEDS ORDERED: MAGNESIUM HYDROX 2400MG/30ML ORAL SUSPENSION 30 ML CUP PO PRN (14:19)
--- NOTE | 2019-04-22 15:30 | PN ---
Physical Exam: SUBJECTIVE: Patient seen and examined at bedside. Eating well drinking her ensure. Pt feeling fatigued still. OBJECTIVE: Vital Signs Period Temp Pulse Resp BP Sys/Biswas Pulse Ox Last 24 Hr 97.5 F-98.2 F 66-102 18-20 118-149/71-82 97-98 GENERAL: The patient is somnolent, lethargic but AO X3. LUNGS: Breath sounds equal, clear to auscultation bilaterally, no wheezes, no crackles, no accessory muscle use. HEART: Regular rate and rhythm, S1, S2 without murmur, rub or gallop. ABDOMEN: Soft, nontender, nondistended. EXTREMITIES: 2+ pulses, warm, well-perfused, no edema. NEUROLOGICAL: Cranial nerves II through XII grossly intact. Normal speech, gait not observed. PSYCH: Normal mood, normal affect. Laboratory Results - last 24 hr 04/21/19 04/21/19 04/21/19 15:20 15:20 16:47 WBC RBC Hgb Hct MCV MCH MCHC RDW Plt Count MPV Absolute Neuts (auto) Neutrophils % Lymphocytes % Monocytes % Eosinophils % Basophils % Nucleated RBC % Sodium Potassium Chloride Carbon Dioxide Anion Gap BUN Creatinine Est GFR (CKD-EPI)AfAm Est GFR (CKD-EPI)NonAf POC Glucometer 93 Random Glucose Calcium Total Bilirubin AST ALT Alkaline Phosphatase Total Protein Albumin Ur Random Sodium 64 Ur Random Potassium 18.0 L Ur Random Chloride 66 L Opiates Screen Negative Methadone Screen Positive A* Barbiturate Screen Negative Phencyclidine Screen Negative Ur Amphetamines Screen Negative MDMA (Ecstasy) Screen Negative Benzodiazepines Screen Positive A* Cocaine Screen Negative U Marijuana (THC) Screen Negative 04/22/19 04/22/19 04/22/19 01:17 06:34 06:34 WBC 3.0 L RBC 3.86 Hgb 11.8 Hct 34.0 MCV 88.3 MCH 30.6 MCHC 34.6 RDW 14.3 Plt Count 232 MPV 7.4 L Absolute Neuts (auto) 1.6 Neutrophils % 52.6 Lymphocytes % 33.6 Monocytes % 11.7 H Eosinophils % 1.1 Basophils % 1.0 Nucleated RBC % 0 Sodium 142 Potassium 4.2 Chloride 111 H Carbon Dioxide 26 Anion Gap 5 L BUN 18.8 H Creatinine 0.8 Est GFR (CKD-EPI)AfAm 86.57 Est GFR (CKD-EPI)NonAf 74.70 POC Glucometer 120 Random Glucose 100 Calcium 8.9 Total Bilirubin 0.2 AST 12 L ALT 13 Alkaline Phosphatase 45 Total Protein 5.6 L Albumin 2.9 L Ur Random Sodium Ur Random Potassium Ur Random Chloride Opiates Screen Methadone Screen Barbiturate Screen Phencyclidine Screen Ur Amphetamines Screen MDMA (Ecstasy) Screen Benzodiazepines Screen Cocaine Screen U Marijuana (THC) Screen 04/22/19 06:35 WBC RBC Hgb Hct MCV MCH MCHC RDW Plt Count MPV Absolute Neuts (auto) Neutrophils % Lymphocytes % Monocytes % Eosinophils % Basophils % Nucleated RBC % Sodium Potassium Chloride Carbon Dioxide Anion Gap BUN Creatinine Est GFR (CKD-EPI)AfAm Est GFR (CKD-EPI)NonAf POC Glucometer 102 Random Glucose Calcium Total Bilirubin AST ALT Alkaline Phosphatase Total Protein Albumin Ur Random Sodium Ur Random Potassium Ur Random Chloride Opiates Screen Methadone Screen Barbiturate Screen Phencyclidine Screen Ur Amphetamines Screen MDMA (Ecstasy) Screen Benzodiazepines Screen Cocaine Screen U Marijuana (THC) Screen Active Medications Generic Name Dose Route Start Last Admin Trade Name Freq PRN Reason Stop Dose Admin Al Hydroxide/Mg Hydroxide 30 ml 04/22/19 14:19 Mylanta Oral Suspension - PO Q6H PRN DYSPEPSIA Aspirin 81 mg 04/21/19 10:15 04/22/19 09:34 Ecotrin - PO 81 mg DAILY SEBASTIAN Administration Carvedilol 6.25 mg 04/22/19 14:24 Coreg - PO BID SEBASTIAN Folic Acid 1 mg 04/21/19 10:00 04/22/19 09:34 Folic Acid - PO 1 mg DAILY SEBASTIAN Administration Heparin Sodium (Porcine) 5,000 unit 04/20/19 06:00 04/22/19 14:19 Heparin - SQ 5,000 unit TID SEBASTIAN Administration Magnesium Hydroxide 30 ml 04/22/19 14:19 Milk Of Magnesia - PO PRN PRN CONSTIPATION Melatonin 5 mg 04/22/19 14:19 Melatonin PO HS PRN INSOMNIA Multivitamins/Minerals 1 each 04/21/19 10:00 04/22/19 09:34 Theragran-M PO 1 each DAILY SEBASTIAN Administration Thiamine HCl 100 mg 04/21/19 10:00 04/22/19 09:34 Vitamin B1 - PO 100 mg DAILY SEBASTIAN Administration ASSESSMENT/PLAN: This is a 69 y/o F with a PMHx of HTN, CAD (s/p stent) PSA (crack cocaine, heroin, alcohol), who presents today from [facility] with acute encephalopathy 2/ 2 to overdose at [facility] with chest pain, found to have new EKG changes. 1) Acute Encephalopathy 2/2 to likely overdose -Head CT negative -Patient not given methadone today after confirming with Dr Leija she is not on methadone. -holding librium/ativan -Urine toxicology positive for methadone and benzos -TSH 0.28 (low), T4 (normal) likely subacute hyperthyroidism. CPK ordered- High , -Addiction medicine consulted, appreciate recs for continued detox #Abdominal Pain - CT abd pelvis with oral and IV contrast - extra and intrehepatic dilation noted, 1.5 cm dilated CBD - MRCP to evaluate biliary tree - GI consulted (Rene) appreciate recs given 2)Chest pain -Hx of CAD -Patient reports continued chest pain, describes it to be the same in nature as prior admission. -EKG has T-Wave inversion in Leads V3-V6, II and III -Continuous cardiac monitoring -Echo completed last admission showed normal LV and RV function, 60% EF -3 troponins negative, cardio believes stress test can be done only after Utox negative as o/p. 3) JENNIFER -Creatinine today is 0.9, last labs show patient at baseline of 0.8 -Likely pre-renal due to dehydration and decreased PO intake - monitor off fluids 4) Hx of HTN -Home meds of Carvedilol 6.25 mg PO BID, Losartan 50 mg PO , and Nifedipine 30 mg PO daily held due to initial hypotension - lipid profile wnl -Will restart medications if patient remains HD stable F: D5NS @100 ml/hr E: Trend Mag, Phos, CMP N: NPO DVT: Heparin SQ TID Visit type - Emergency Visit Emergency Visit: Yes ED Registration Date: 04/20/19 Care time: The patient presented to the Emergency Department on the above date and was hospitalized for further evaluation of their emergent condition. - New Patient This patient is new to me today: No - Critical Care Critical Care patient: No - Discharge Referral Referred to [facility] Med P.C.: No ATTENDING PHYSICIAN STATEMENT I saw and evaluated the patient. I reviewed the resident's note and discussed the case with the resident. I agree with the resident's findings and plan as documented. SUBJECTIVE: OBJECTIVE: ASSESSMENT AND PLAN:
[2019-04-22] MEDS ORDERED: ACETAMINOPHEN 325 MG TABLET (FP) PO PRN (17:04)
[2019-04-22] MEDS ORDERED: ONDANSETRON 4 MG/2 ML VIAL IVPUSH PRN (17:04)
[2019-04-22] MEDS ORDERED: ACETAMINOPHEN 325 MG TABLET (FP) ONE (17:08)
[2019-04-22] MEDS: MAG HYDROX/AL HYDROX/SIMETH 30 ML UNIT-DOSE CUP PO PRN (17:10)
[2019-04-22 21:42] LABS: PH,URINE 8.5 (5.0-8.0); URINE APPEARANCE TURBID; URINE BILIRUBIN NEGATIVE (NEGATIVE); URINE COLOR YELLOW; URINE GLUCOSE (UA) NEGATIVE (NEGATIVE); URINE KETONE NEGATIVE (NEGATIVE); URINE LEUK ESTERASE NEGATIVE (NEGATIVE); URINE NITRITE NEGATIVE (NEGATIVE); URINE PROTEIN NEGATIVE (NEGATIVE); URINE UROBILINOGEN 0.2 mg/dL (0.2-1.0)
[2019-04-22] MEDS ORDERED: CARVEDILOL 6.25 MG TABLET (FP) PO SCH (22:00)
[2019-04-22] MEDS: MELATONIN 5 MG TABLETS PO PRN (22:48)
[2019-04-22] MEDS: CARVEDILOL 6.25 MG TABLET (FP) PO SCH (22:48)
--- NOTE | 2019-04-23 06:04 | PN ---
Progress Note (short form) - Note Progress Note: Nurse called me regarding BP >170/100 Restarted home cozaar and procardia given renal ftn stable and pt no longer hypotensive.
[2019-04-23] MEDS: CARVEDILOL 6.25 MG TABLET (FP) PO SCH ×3 (06:25→21:58)
[2019-04-23] MEDS: HEPARIN NA (PORCINE) 5,000 UNITS/ML 1ML VIAL SQ SCH ×3 (06:25→21:58)
[2019-04-23 07:13] LABS: BASO % 0.5 % (0-2.0); EOS % 0.4 % (0-4.5); HEMATOCRIT 36.9 % (32.4-45.2); HEMOGLOBIN 12.7 GM/dL (10.7-15.3); LYMPH % 24.2 % (8-40); MCH 30.1 pg (25.7-33.7); MCHC 34.3 g/dl (32.0-36.0); MEAN CELL VOLUME 87.6 fl (80-96); MEAN PLT VOLUME 7.7 fl (7.5-11.1); MONO % 9.7 % (3.8-10.2); NEUT % 65.2 % (42.8-82.8); PLATELET COUNT 273 K/MM3 (134-434); RBC 4.22 M/mm3 (3.60-5.2); RDW 14.8 % (11.6-15.6); WHITE BLOOD COUNT 4.6 K/mm3 (4.0-10.0)
[2019-04-23 07:47] LABS: ALBUMIN 3.1 g/dl (3.4-5.0); BILIRUBIN,TOTAL 0.5 mg/dL (0.2-1); BLOOD UREA NITROGEN 12.2 mg/dL (7-18); CALCIUM 9.8 mg/dL (8.5-10.1); CREATININE 0.7 mg/dL (0.55-1.3); POTASSIUM 4.2 mmol/L (3.5-5.1); TOT PROT 6.4 g/dl (6.4-8.2)
--- NOTE | 2019-04-23 08:02 | PN.GI ---
GI Progress Note Subjective: NO NEW COMPLAINTS TM 100.8 - Objective Vital Signs: Vital Signs Temperature 99.3 F 04/23/19 05:00 Pulse Rate 64 04/23/19 05:00 Respiratory Rate 18 04/23/19 05:00 Blood Pressure 175/100 H 04/23/19 05:00 O2 Sat by Pulse Oximetry (%) 97 04/22/19 20:24 Constitutional: Well Nourished, Calm Eyes: Yes: WNL HENT: Yes: WNL Cardiovascular: Yes: WNL, Regular Rate and Rhythm Respiratory: Yes: WNL, Regular, CTA Bilaterally Gastrointestinal Inspection: Yes: WNL ...Auscultate: Yes: Normoactive Bowel Sounds Extremities: Yes: WNL Edema: No Labs: CBC, BMP 04/23/19 06:47 04/23/19 06:47 INR, PTT INR 0.92 (0.83-1.09) 04/20/19 00:55 Problem List - Problems (1) Bile duct abnormality Assessment/Plan: - F/U CULTURES FEVER EVALUATION PER PRIMARY MEDICAL TEAM ; LFT NORMAL - UNLIKELY OBSTRUCTION F/U MRCP REPEAT LFT IN AM Code(s): K83.9 - DISEASE OF BILIARY TRACT, UNSPECIFIED
[2019-04-23] MEDS: NIFEdipine E.R. 30 MG TABLET PO SCH ×2 (08:10→09:26)
[2019-04-23] MEDS: FOLIC ACID 1 MG TABLET (FP) PO SCH (09:25)
[2019-04-23] MEDS: THIAMINE HCL 100 MG TABLET (FP) PO SCH (09:25)
[2019-04-23] MEDS: ASPIRIN COATED 81 MG TABLET.EC PO SCH (09:26)
[2019-04-23] MEDS: LOSARTAN POTASSIUM 50 MG TABLET (FP) PO SCH (09:26)
[2019-04-23] MEDS: MULTIVITAMINS THER W-MINERALS COMBO TABLET (FP) PO SCH (09:26)
--- NOTE | 2019-04-23 12:36 | PN ---
Progress Note (short form) - Note Progress Note: SUBJECTIVE: Awake, no further CP. No palpitations/SOB. Abdominal pain resolved. Tolerating oral intake. No nausea/vomiting. OBJECTIVE: Fever overnight - Tmax 100.8, Hemodynamically Stable. Still lethargic but rousable to O x 3. Last Vital Signs Temp Pulse Resp BP Pulse Ox 99.1 F 76 18 151/100 95 04/23/19 08:16 04/23/19 08:16 04/23/19 08:16 04/23/19 08:16 04/23/19 08:16 HEENT - Atraumatic, Normocephalic. Heart - S1, S2, RRR Lungs - clear to auscultation Abdomen - Soft, mild RUQ tenderness. Bowel Sounds normal. Extremities - No edema, no calf tenderness. Laboratory Results - last 24 hr 04/22/19 04/22/19 04/22/19 17:01 20:23 20:52 WBC RBC Hgb Hct MCV MCH MCHC RDW Plt Count MPV Absolute Neuts (auto) Neutrophils % Lymphocytes % Monocytes % Eosinophils % Basophils % Nucleated RBC % Sodium Potassium Chloride Carbon Dioxide Anion Gap BUN Creatinine Est GFR (CKD-EPI)AfAm Est GFR (CKD-EPI)NonAf POC Glucometer 106 201 Random Glucose Lactic Acid Calcium Total Bilirubin AST ALT Alkaline Phosphatase Total Protein Albumin Urine Color Yellow Urine Appearance Turbid Urine pH 8.5 H Ur Specific [place] 1.019 Urine Protein Negative Urine Glucose (UA) Negative Urine Ketones Negative Urine Blood Negative Urine Nitrite Negative Urine Bilirubin Negative Urine Urobilinogen 0.2 Ur Leukocyte Esterase Negative 04/22/19 04/23/19 04/23/19 21:35 05:53 06:47 WBC 4.6 RBC 4.22 Hgb 12.7 Hct 36.9 MCV 87.6 MCH 30.1 MCHC 34.3 RDW 14.8 Plt Count 273 MPV 7.7 Absolute Neuts (auto) 3.0 Neutrophils % 65.2 D Lymphocytes % 24.2 D Monocytes % 9.7 Eosinophils % 0.4 Basophils % 0.5 Nucleated RBC % 0 Sodium Potassium Chloride Carbon Dioxide Anion Gap BUN Creatinine Est GFR (CKD-EPI)AfAm Est GFR (CKD-EPI)NonAf POC Glucometer 108 Random Glucose Lactic Acid 1.6 Calcium Total Bilirubin AST ALT Alkaline Phosphatase Total Protein Albumin Urine Color Urine Appearance Urine pH Ur Specific [place] Urine Protein Urine Glucose (UA) Urine Ketones Urine Blood Urine Nitrite Urine Bilirubin Urine Urobilinogen Ur Leukocyte Esterase 04/23/19 04/23/19 06:47 11:30 WBC RBC Hgb Hct MCV MCH MCHC RDW Plt Count MPV Absolute Neuts (auto) Neutrophils % Lymphocytes % Monocytes % Eosinophils % Basophils % Nucleated RBC % Sodium 139 Potassium 4.2 Chloride 105 Carbon Dioxide 30 Anion Gap 4 L BUN 12.2 Creatinine 0.7 Est GFR (CKD-EPI)AfAm 101.74 Est GFR (CKD-EPI)NonAf 87.78 POC Glucometer 119 Random Glucose 101 Lactic Acid Calcium 9.8 Total Bilirubin 0.5 AST 17 ALT 15 Alkaline Phosphatase 49 Total Protein 6.4 Albumin 3.1 L Urine Color Urine Appearance Urine pH Ur Specific [place] Urine Protein Urine Glucose (UA) Urine Ketones Urine Blood Urine Nitrite Urine Bilirubin Urine Urobilinogen Ur Leukocyte Esterase Current Medications Generic Name Dose Route Start Last Admin Trade Name Freq PRN Reason Stop Dose Admin Acetaminophen 650 mg 04/22/19 17:04 Tylenol - PO Q4H PRN PAIN LEVEL 1 - 3 Al Hydroxide/Mg Hydroxide 30 ml 04/22/19 14:19 04/22/19 17:10 Mylanta Oral Suspension - PO 30 ml Q6H PRN Administration DYSPEPSIA Aspirin 81 mg 04/21/19 10:15 04/23/19 09:26 Ecotrin - PO 81 mg DAILY SEBASTIAN Administration Carvedilol 6.25 mg 04/22/19 14:24 04/23/19 09:26 Coreg - PO Not Given BID SEBASTIAN Folic Acid 1 mg 04/21/19 10:00 04/23/19 09:25 Folic Acid - PO 1 mg DAILY SEBASTIAN Administration Heparin Sodium (Porcine) 5,000 unit 04/20/19 06:00 04/23/19 06:25 Heparin - SQ 5,000 unit TID SEBASTIAN Administration Losartan Potassium 50 mg 04/23/19 10:00 04/23/19 09:26 Cozaar - PO 50 mg DAILY SEBASTIAN Administration Magnesium Hydroxide 30 ml 04/22/19 14:19 Milk Of Magnesia - PO PRN PRN CONSTIPATION Melatonin 5 mg 04/22/19 14:19 04/22/19 22:48 Melatonin PO 5 mg HS PRN Administration INSOMNIA Multivitamins/Minerals 1 each 04/21/19 10:00 04/23/19 09:26 Theragran-M PO 1 each DAILY SEBASTIAN Administration Nifedipine 30 mg 04/23/19 10:00 04/23/19 09:26 Procardia Xl - PO Not Given DAILY SEBASTIAN Ondansetron HCl 4 mg 04/22/19 17:04 04/22/19 17:10 Zofran Injection IVPUSH 4 mg Q6H PRN Administration NAUSEA Thiamine HCl 100 mg 04/21/19 10:00 04/23/19 09:25 Vitamin B1 - PO 100 mg DAILY SEBASTIAN Administration Home Medications Medication Instructions Recorded Carvedilol [Coreg -] 6.25 mg PO BID #60 tablet 04/18/19 Losartan Potassium [Cozaar -] 50 mg PO DAILY #30 tablet 04/18/19 Nifedipine ER [Procardia XL -] 30 mg PO DAILY #30 tab.er.24 04/18/19 Acetaminophen [Tylenol] 650 mg PO Q6H PRN 04/21/19 Bismuth Subsalicylate 30 ml PO Q1H PRN 04/21/19 [Pepto-Bismol -] Ibuprofen [Motrin -] 400 mg PO PRN PRN 04/21/19 Mag Hydrox/Al Hydrox/Simeth 30 ml PO Q6H PRN 04/21/19 [Mylanta Oral Suspension -] Magnesium Hydrox 2400MG/30Ml [Milk 30 ml PO PRN PRN 04/21/19 of Magnesia -] Melatonin 5 mg PO HS PRN 04/21/19 Menthol/Phenol [Cepastat Lozenge -] 1 each PO Q4H PRN 04/21/19 Thiamine HCl [Vitamin B-1] 100 mg PO HS 04/21/19 ASSESSMENT/PLAN 69 year old female with history of HTN, CAD s/p PCI/Stent, Polysubstance abuse ( crack cocaine, heroin) who was sent to the ED from [facility] after being found to be lethargic and hypotensive. 1. Acute Metabolic/Toxic Encephalopathy secondary to overdose, dehydration/ hypovolemia s/p Narcan CT Head - normal. Librium, Methadone held currently. 2. Fever, etiology unclear. No infective signs/symptoms Septic Screen requested - CXR, Urine/Blood Cx. Will hold off Abx for now. 3. Chest Pain ?cocaine related, no evidence of ACS, Background CAD s/p PCI/ Stent. TropI neg x 3. EKG with inferior and anterolateral T wave abnormalities Echocardiogram (04/18) showed normal LV, LVEF 60%, normal LA, normal RA, normal RV, trace to mild MR, mild TR, impaired LV relaxation Resumed on BB. Further management as per Cardio 4. Acute Kidney Injury - secondary to dehydration/hypovolemia. Improved with IV fluids. 5. HTN - uncontrolled. Resumed on Coreg, Losartan, Nifedipine. Monitor BP. 6. Polysubstance Abuse (crack cocaine, heroin) - Librium held due to encephalopathy. Thiamine, Folic Acid, MVI. 7. Non-specific abdominal pain - etiology unclear ? withdrawals CT A/P - extra-/intra-hepatic dilatation, mild dilatation of the pancreatic duct. Evaluated by GI - MRCP requested, awaiting study. Continue regular diet. 8. Low TSH, normal free T4 - repeat in 3-4 weeks. DVT Px - Heparin SQ Visit type - Emergency Visit Emergency Visit: Yes ED Registration Date: 04/20/19 Care time: The patient presented to the Emergency Department on the above date and was hospitalized for further evaluation of their emergent condition. - New Patient This patient is new to me today: No - Critical Care Critical Care patient: No - Discharge Referral Referred to [facility] Med P.C.: No
[2019-04-23] MEDS: MELATONIN 5 MG TABLETS PO PRN (21:58)
[2019-04-23] MEDS: MAG HYDROX/AL HYDROX/SIMETH 30 ML UNIT-DOSE CUP PO PRN (21:58)
[2019-04-24] MEDS: HEPARIN NA (PORCINE) 5,000 UNITS/ML 1ML VIAL SQ SCH ×3 (05:51→21:58)
--- NOTE | 2019-04-24 07:05 | PN.GI ---
GI Progress Note Subjective: COMPLAINS OF NAUSEA AND INABILITY TO EAT BECAUSE OF IT. STILL WITH VAGUE ABD PAIN - NO DIARRHEA / CONSTIPATION NO OTHER COMPLAINTS - Objective Vital Signs: Vital Signs Temperature 98.6 F 04/24/19 05:47 Pulse Rate 70 04/24/19 05:47 Respiratory Rate 04/24/19 05:47 Blood Pressure 148/93 04/24/19 05:47 O2 Sat by Pulse Oximetry (%) 94 L 04/23/19 20:03 Constitutional: Well Nourished, No Distress, Calm Cardiovascular: Yes: WNL, Regular Rate and Rhythm Respiratory: Yes: WNL, Regular, CTA Bilaterally Gastrointestinal Inspection: Yes: WNL, Other (NOT TENDER) ...Auscultate: Yes: Normoactive Bowel Sounds Musculoskeletal: Yes: WNL Extremities: Yes: WNL Edema: No Labs: CBC, BMP 04/23/19 06:47 04/23/19 06:47 INR, PTT INR 0.92 (0.83-1.09) 04/20/19 00:55 Problem List - Problems (1) Bile duct abnormality Assessment/Plan: CHANGED ZOFRAN TO ATC AND ADDED PEPCID FOR SYMPTOM CONTROL. F/U MRCP - F/U CULTURES FEVER EVALUATION PER PRIMARY MEDICAL TEAM ; LFT NORMAL - UNLIKELY OBSTRUCTION Code(s): K83.9 - DISEASE OF BILIARY TRACT, UNSPECIFIED
[2019-04-24] MEDS: NIFEdipine E.R. 30 MG TABLET PO SCH (09:35)
[2019-04-24] MEDS: THIAMINE HCL 100 MG TABLET (FP) PO SCH (09:35)
[2019-04-24] MEDS: MULTIVITAMINS THER W-MINERALS COMBO TABLET (FP) PO SCH (09:35)
[2019-04-24] MEDS: LOSARTAN POTASSIUM 50 MG TABLET (FP) PO SCH (09:35)
[2019-04-24] MEDS: CARVEDILOL 6.25 MG TABLET (FP) PO SCH ×2 (09:35→21:59)
[2019-04-24] MEDS: FOLIC ACID 1 MG TABLET (FP) PO SCH (09:35)
[2019-04-24] MEDS: ASPIRIN COATED 81 MG TABLET.EC PO SCH (09:35)
[2019-04-24 10:33] LABS: BASO % 0.6 % (0-2.0); EOS % 0.7 % (0-4.5); HEMATOCRIT 37.4 % (32.4-45.2); HEMOGLOBIN 12.8 GM/dL (10.7-15.3); LYMPH % 20.1 % (8-40); MCH 30.4 pg (25.7-33.7); MCHC 34.4 g/dl (32.0-36.0); MEAN CELL VOLUME 88.5 fl (80-96); MEAN PLT VOLUME 7.7 fl (7.5-11.1); NEUT % 71.6 % (42.8-82.8); PLATELET COUNT 302 K/MM3 (134-434); RBC 4.22 M/mm3 (3.60-5.2); RDW 14.6 % (11.6-15.6); WHITE BLOOD COUNT 5.4 K/mm3 (4.0-10.0)
[2019-04-24 11:06] LABS: BLOOD UREA NITROGEN 15.1 mg/dL (7-18); CALCIUM 9.5 mg/dL (8.5-10.1); CREATININE 0.8 mg/dL (0.55-1.3); POTASSIUM 4.2 mmol/L (3.5-5.1)
--- NOTE | 2019-04-24 12:21 | PN ---
Teaching Attending Note Name of Resident: Essence Singh ATTENDING PHYSICIAN STATEMENT I saw and evaluated the patient. I reviewed the resident's note and discussed the case with the resident. I agree with the resident's findings and plan as documented. SUBJECTIVE: Awake, no further CP. No palpitations/SOB. Abdominal pain ongoing. Tolerating oral intake. No nausea/vomiting. OBJECTIVE: Tmax overnight 99.8. Hemodynamically Stable. AAO x 3. Last Vital Signs Temp Pulse Resp BP Pulse Ox 98.3 F 80 18 137/88 97 04/24/19 09:27 04/24/19 09:27 04/24/19 09:27 04/24/19 09:27 04/24/19 09:00 HEENT - Atraumatic, Normocephalic. Heart - S1, S2, RRR Lungs - clear to auscultation Abdomen - Soft, mild generalized tenderness, wors ein RUQ. Bowel Sounds normal. Extremities - No edema, no calf tenderness. Laboratory Results - last 24 hr 04/23/19 04/24/19 04/24/19 22:55 09:45 09:45 WBC 5.4 RBC 4.22 Hgb 12.8 Hct 37.4 MCV 88.5 MCH 30.4 MCHC 34.4 RDW 14.6 Plt Count 302 MPV 7.7 Absolute Neuts (auto) 3.9 Neutrophils % 71.6 Lymphocytes % 20.1 Monocytes % 7.0 Eosinophils % 0.7 Basophils % 0.6 Nucleated RBC % 0 Sodium 139 Potassium 4.2 Chloride 104 Carbon Dioxide 26 Anion Gap 9 BUN 15.1 Creatinine 0.8 Est GFR (CKD-EPI)AfAm 86.57 Est GFR (CKD-EPI)NonAf 74.70 POC Glucometer 121 Random Glucose 141 H Calcium 9.5 Current Medications Generic Name Dose Route Start Last Admin Trade Name Freq PRN Reason Stop Dose Admin Acetaminophen 650 mg 04/22/19 17:04 Tylenol - PO Q4H PRN PAIN LEVEL 1 - 3 Al Hydroxide/Mg Hydroxide 30 ml 04/22/19 14:19 04/23/19 21:58 Mylanta Oral Suspension - PO 30 ml Q6H PRN Administration DYSPEPSIA Aspirin 81 mg 04/21/19 10:15 04/24/19 09:35 Ecotrin - PO 81 mg DAILY SEBASTIAN Administration Carvedilol 6.25 mg 04/22/19 14:24 04/24/19 09:35 Coreg - PO 6.25 mg BID SEBASTIAN Administration Folic Acid 1 mg 04/21/19 10:00 04/24/19 09:35 Folic Acid - PO 1 mg DAILY SEBASTIAN Administration Heparin Sodium (Porcine) 5,000 unit 04/20/19 06:00 04/24/19 05:51 Heparin - SQ 5,000 unit TID SEBASTIAN Administration Losartan Potassium 50 mg 04/23/19 10:00 04/24/19 09:35 Cozaar - PO 50 mg DAILY SEBASTIAN Administration Magnesium Hydroxide 30 ml 04/22/19 14:19 Milk Of Magnesia - PO PRN PRN CONSTIPATION Melatonin 5 mg 04/22/19 14:19 04/23/19 21:58 Melatonin PO 5 mg HS PRN Administration INSOMNIA Multivitamins/Minerals 1 each 04/21/19 10:00 04/24/19 09:35 Theragran-M PO 1 each DAILY SEBASTIAN Administration Nifedipine 30 mg 04/23/19 10:00 04/24/19 09:35 Procardia Xl - PO 30 mg DAILY SEBASTIAN Administration Ondansetron HCl 4 mg 04/22/19 17:04 04/22/19 17:10 Zofran Injection IVPUSH 4 mg Q6H PRN Administration NAUSEA Thiamine HCl 100 mg 04/21/19 10:00 04/24/19 09:35 Vitamin B1 - PO 100 mg DAILY SEBASTIAN Administration Home Medications Medication Instructions Recorded Carvedilol [Coreg -] 6.25 mg PO BID #60 tablet 04/18/19 Losartan Potassium [Cozaar -] 50 mg PO DAILY #30 tablet 04/18/19 Nifedipine ER [Procardia XL -] 30 mg PO DAILY #30 tab.er.24 04/18/19 Acetaminophen [Tylenol] 650 mg PO Q6H PRN 04/21/19 Bismuth Subsalicylate 30 ml PO Q1H PRN 04/21/19 [Pepto-Bismol -] Ibuprofen [Motrin -] 400 mg PO PRN PRN 04/21/19 Mag Hydrox/Al Hydrox/Simeth 30 ml PO Q6H PRN 04/21/19 [Mylanta Oral Suspension -] Magnesium Hydrox 2400MG/30Ml [Milk 30 ml PO PRN PRN 04/21/19 of Magnesia -] Melatonin 5 mg PO HS PRN 04/21/19 Menthol/Phenol [Cepastat Lozenge -] 1 each PO Q4H PRN 04/21/19 Thiamine HCl [Vitamin B-1] 100 mg PO HS 04/21/19 ASSESSMENT/PLAN 69 year old female with history of HTN, CAD s/p PCI/Stent, Polysubstance abuse ( crack cocaine, heroin) who was sent to the ED from [facility] after being found to be lethargic and hypotensive. 1. Acute Metabolic/Toxic Encephalopathy secondary to overdose, dehydration/ hypovolemia - resolved. s/p Narcan CT Head - normal. Librium, Methadone held currently. 2. Fever, etiology unclear, appears to be resolving. Septic Screen requested - CXR - no acute findings, Urine/Blood Cx negative. Doubt pancreatic/biliary pathology as cause for fever. Will hold off Abx for now. 3. Non-specific abdominal pain - etiology unclear ? withdrawals CT A/P - extra-/intra-hepatic dilatation, mild dilatation of the pancreatic duct. Evaluated by GI - MRCP requested, awaiting study (patient refused yesterday, now agrees to have MRCP done) Continue regular diet. 4. Chest Pain ?cocaine related, no evidence of ACS, Background CAD s/p PCI/ Stent. TropI neg x 3. EKG with inferior and anterolateral T wave abnormalities Echocardiogram (04/18) showed normal LV, LVEF 60%, normal LA, normal RA, normal RV, trace to mild MR, mild TR, impaired LV relaxation Resumed on BB. Further management as per Cardio 5. Acute Kidney Injury - secondary to dehydration/hypovolemia. Improved with IV fluids. 5. HTN - uncontrolled. Resumed on Coreg, Losartan, Nifedipine. Monitor BP. 6. Polysubstance Abuse (crack cocaine, heroin, alcohol) - Librium held due to encephalopathy. No evidence of alcohol withdrawal. Thiamine, Folic Acid, MVI. 7. Low TSH, normal free T4 - repeat in 3-4 weeks. DVT Px - Heparin SQ
--- NOTE | 2019-04-24 13:45 | PN ---
Physical Exam: SUBJECTIVE: Patient seen and examined at bedside. Pt sleepy, but easily arousable. States she has abd pain because she "is not eating a lot". Denies n/v , diarrhea, f/c. OBJECTIVE: Vital Signs Temperature 98.3 F 04/24/19 09:27 Pulse Rate 80 04/24/19 09:27 Respiratory Rate 18 04/24/19 09:27 Blood Pressure 137/88 04/24/19 09:27 O2 Sat by Pulse Oximetry (%) 97 04/24/19 09:00 GENERAL: Sleepy, but easily arousable. NAD. LUNGS: Breath sounds equal, clear to auscultation bilaterally, no wheezes, no crackles, no accessory muscle use. HEART: Regular rate and rhythm, S1, S2 without murmur, rub or gallop. ABDOMEN: Soft, nontender, nondistended. EXTREMITIES: 2+ pulses, warm, well-perfused, no edema. NEUROLOGICAL: Cranial nerves II through XII grossly intact. Normal speech, gait not observed. PSYCH: Normal mood, normal affect. CBC, BMP 04/24/19 09:45 04/24/19 09:45 Active Medications Acetaminophen (Tylenol -) 650 mg PO Q4H PRN PRN Reason: PAIN LEVEL 1 - 3 Al Hydroxide/Mg Hydroxide (Mylanta Oral Suspension -) 30 ml PO Q6H PRN PRN Reason: DYSPEPSIA Last Admin: 04/23/19 21:58 Dose: 30 ml Aspirin (Ecotrin -) 81 mg PO DAILY [facility] Last Admin: 04/24/19 09:35 Dose: 81 mg Carvedilol (Coreg -) 6.25 mg PO BID [facility] Last Admin: 04/24/19 09:35 Dose: 6.25 mg Folic Acid (Folic Acid -) 1 mg PO DAILY [facility] Last Admin: 04/24/19 09:35 Dose: 1 mg Heparin Sodium (Porcine) (Heparin -) 5,000 unit SQ TID [facility] Last Admin: 04/24/19 13:12 Dose: Not Given Losartan Potassium (Cozaar -) 50 mg PO DAILY [facility] Last Admin: 04/24/19 09:35 Dose: 50 mg Magnesium Hydroxide (Milk Of Magnesia -) 30 ml PO PRN PRN PRN Reason: CONSTIPATION Melatonin (Melatonin) 5 mg PO HS PRN PRN Reason: INSOMNIA Last Admin: 04/23/19 21:58 Dose: 5 mg Multivitamins/Minerals (Theragran-M) 1 each PO DAILY [facility] Last Admin: 04/24/19 09:35 Dose: 1 each Nifedipine (Procardia Xl -) 30 mg PO DAILY [facility] Last Admin: 04/24/19 09:35 Dose: 30 mg Ondansetron HCl (Zofran Injection) 4 mg IVPUSH Q6H PRN PRN Reason: NAUSEA Last Admin: 04/22/19 17:10 Dose: 4 mg Thiamine HCl (Vitamin B1 -) 100 mg PO DAILY [facility] Last Admin: 04/24/19 09:35 Dose: 100 mg ASSESSMENT/PLAN: 69 y/o F with a PMHx of HTN, CAD (s/p stent) PSA (crack cocaine, heroin, alcohol ), who presents today from [facility] with acute encephalopathy 2/2 to overdose at [facility] with chest pain, found to have new EKG changes. #Acute Encephalopathy 2/2 to likely overdose -Head CT negative -Patient not given methadone today after confirming with Dr Leija she is not on methadone. -holding librium/ativan -Urine toxicology positive for methadone and benzos -TSH 0.28 (low), T4 (normal) likely subacute hyperthyroidism. CPK ordered- High , -Addiction medicine consulted, appreciate recs for continued detox #Abdominal Pain - CTAP w/ contrast remarkable for 1.5 cm dilated CBD, mildly dilated pancreatic duct 0.4 cm; GB contraction could be physiologic vs. chronic cholecystitis -MRCP pending -LFTs wnl today; cont to trend -Per GI, unlikely obstruction, but will obtain MRCP or further evaluation #Chest pain; Stable. -Pt has no symptomatic complaints today. -Echo completed last admission showed normal LV and RV function, 60% EF -3 troponins negative, cardio believes stress test can be done only after Utox negative as o/p. #JENNIFER; Resolved. Improved with IVf -Creatinine today is 0.8, last labs show patient at baseline of 0.8 -Likely pre-renal due to dehydration and decreased PO intake -PO hydration #Hx of HTN; Uncontrolled. -Cont home meds: Carvedilol 6.25 mg PO BID, Losartan 50 mg PO , and Nifedipine 30 mg PO daily F: Oral hydration E: Trend Mag, Phos, CMP N: Regular diet DVT: Heparin SQ TID Visit type - Emergency Visit Emergency Visit: Yes ED Registration Date: 04/20/19 Care time: The patient presented to the Emergency Department on the above date and was hospitalized for further evaluation of their emergent condition. - New Patient This patient is new to me today: No - Critical Care Critical Care patient: No ATTENDING PHYSICIAN STATEMENT I saw and evaluated the patient. I reviewed the resident's note and discussed the case with the resident. I agree with the resident's findings and plan as documented. SUBJECTIVE: OBJECTIVE: ASSESSMENT AND PLAN:
[2019-04-24] MEDS: ONDANSETRON 4 MG/2 ML VIAL IVPUSH SCH ×2 (15:09→21:58)
[2019-04-24] MEDS: MAG HYDROX/AL HYDROX/SIMETH 30 ML UNIT-DOSE CUP PO PRN (17:14)
[2019-04-24] MEDS: FAMOTIDINE 20 MG/50 ML IVPB 20 MG/50 ML MG IVPB SCH (21:59)
[2019-04-24] MEDS: MELATONIN 5 MG TABLETS PO PRN (22:06)
[2019-04-25] MEDS: ONDANSETRON 4 MG/2 ML VIAL IVPUSH SCH ×4 (04:14→22:07)
[2019-04-25] MEDS ORDERED: ACETAMINOPHEN 1000 MG/100 ML VIAL (NON FORMULARY) IVPB PRN (06:17)
[2019-04-25] MEDS: HEPARIN NA (PORCINE) 5,000 UNITS/ML 1ML VIAL SQ SCH ×3 (06:45→21:52)
[2019-04-25] MEDS: FAMOTIDINE 20 MG/50 ML IVPB 20 MG/50 ML MG IVPB SCH ×2 (09:23→22:07)
[2019-04-25] MEDS: FOLIC ACID 1 MG TABLET (FP) PO SCH (09:24)
[2019-04-25] MEDS: ASPIRIN COATED 81 MG TABLET.EC PO SCH (09:24)
[2019-04-25] MEDS: MULTIVITAMINS THER W-MINERALS COMBO TABLET (FP) PO SCH (09:24)
[2019-04-25] MEDS: CARVEDILOL 6.25 MG TABLET (FP) PO SCH ×2 (09:24→21:59)
[2019-04-25] MEDS: THIAMINE HCL 100 MG TABLET (FP) PO SCH (09:25)
[2019-04-25] MEDS: LOSARTAN POTASSIUM 50 MG TABLET (FP) PO SCH (09:25)
[2019-04-25] MEDS: amLODIPine BESYLATE 5 MG TABLET (FP) PO SCH (09:32)
--- NOTE | 2019-04-25 12:53 | PN ---
Teaching Attending Note Name of Resident: Haroon Jackson ATTENDING PHYSICIAN STATEMENT I saw and evaluated the patient. I reviewed the resident's note and discussed the case with the resident. I agree with the resident's findings and plan as documented. Seen and examined; please see resident note for further historical information. I personally verified all garza historical information and exam findings. Personally interpreted all imaging and diagnostics and reviewed appropriate consults. I reviewed all labs and vital signs as per resident note and EMR as documented. I agree with the above assessment and plan unless supplemented by myself in the following. Patient presented for being found lethargic [facility] found to have left-sided chest pain with negative drug screen and negative troponin. Initial EKG abnormalities noted, no further changes. Will discuss with cardiology regarding need for inpatient stress. Encephalopathy has improved. MRCP was not completed but some images are available. We will attempt to review these with radiology and gastroenterology. I noted that no right upper quadrant ultrasound was obtained in the dilation was minor with no rosendo transaminitis noted. Hepatitis and HIV is pending 10 item review of systems completed and is negative aside from as discussed in the subjective data in my own/the resident documentation. VS, labs, imaging reviewed NAD, AAO, resting comfortably in bed. RRR s1/2 no mgr Normal muscle tone, moves all 5 extremities with normal apparent strength Neck is supple, trachea midline, no rosendo LN Lungs CTAB with sym expansion Mildly tender ND +BS no rosendo organomegaly CN2-12 wnl; no FND NC AT EOMI PERRLA Normal mood, appropriate behavior, euthymic affect No skin breakdown or rashes noted MRCP results, incomplete study, pending Right upper quadrant ultrasound pending EKG noted, telemetry noted Assessment and plan: Encephalopathy improved, no further cardiopulmonary symptoms. We will follow- up the MRCP and abdominal ultrasound, if no concerning symptoms or further issues with GI we will advance her diet as needed. Encephalopathy likely was related to polysubstance abuse/withdrawal. Problems include: -Altered mental status, improved, likely toxic metabolic encephalopathy as delineated -Chest pain, negative troponin with no progressing EKG findings. Will discuss with cardiology regarding inpatient stress testing. Changing to amlodipine from nifedipine, monitor blood pressure, advised substance cessation. Could be referred from the ongoing abdominal symptoms. Placed her on p.o. Protonix. -Likely gastritis, p.o. Protonix, could be related to illicit substance use -Abdominal pain with mild CBD dilation seen on CT, MRCP and abdominal ultrasound pending -Chronic sinusitis, likely related to cocaine use, no need for acute treatment, can give outpatient requisition for ENT referral -Drug abuse, management as per toxicology specialist, can offer rehabilitation as needed. -Underweight, BMI 16, likely related to drug use. -Hyperglycemia, check A1c, 1 4 -Hypertension history, changing nifedipine to amlodipine in case she has an element of coronary vasospasm contributing to her chest pain. -Noncompliance; provide counseling prior to DC Full Code
[2019-04-25] MEDS ORDERED: PANTOPRAZOLE 40 MG TABLET PO SCH (13:00)
[2019-04-25] MEDS ORDERED: ACETAMINOPHEN 325 MG TABLET (FP) PO PRN (14:42)
--- NOTE | 2019-04-25 15:03 | PN ---
Physical Exam: SUBJECTIVE: Patient seen and examined at bedside. C/o epigastric pain, afebrile. No acute events overnight. OBJECTIVE: Vital Signs Period Temp Pulse Resp BP Sys/Biswas Pulse Ox Last 24 Hr 97.9 F-98.9 F 77-82 20-20 134-156/82-92 97-97 GENERAL: The patient is awake, alert, and fully oriented, mildly somnolent. NECK: supple. LUNGS: Breath sounds equal, clear to auscultation bilaterally, no wheezes, no crackles, no accessory muscle use. HEART: Regular rate and rhythm, S1, S2 without murmur, rub or gallop. ABDOMEN: Soft, tender to palpation of midepigastrium, nonradiating, nondistended. EXTREMITIES: 2+ pulses, warm, well-perfused, no edema. NEUROLOGICAL: Cranial nerves II through XII grossly intact. Normal speech, stood her up but gait unable to be assessed due to pts lethargy. PSYCH: somnolent SKIN: Warm, dry, no rashes or lesions noted Active Medications Generic Name Dose Route Start Last Admin Trade Name Freq PRN Reason Stop Dose Admin Acetaminophen 650 mg 04/25/19 14:42 Tylenol - PO Q6H PRN PAIN LEVEL 1 - 6 Al Hydroxide/Mg Hydroxide 30 ml 04/22/19 14:19 04/24/19 17:14 Mylanta Oral Suspension - PO 30 ml Q6H PRN Administration DYSPEPSIA Amlodipine Besylate 5 mg 04/25/19 10:00 04/25/19 09:32 Norvasc - PO 5 mg DAILY [facility] Administration Aspirin 81 mg 04/21/19 10:15 04/25/19 09:24 Ecotrin - PO 81 mg DAILY [facility] Administration Carvedilol 6.25 mg 04/22/19 14:24 04/25/19 09:24 Coreg - PO 6.25 mg BID [facility] Administration Folic Acid 1 mg 04/21/19 10:00 04/25/19 09:24 Folic Acid - PO 1 mg DAILY [facility] Administration Heparin Sodium (Porcine) 5,000 unit 04/20/19 06:00 04/25/19 14:21 Heparin - SQ 5,000 unit TID [facility] Administration Famotidine/Sodium Chloride 20 mg in 50 mls @ 100 mls/hr 04/24/19 22:00 09:23 Pepcid 20 Mg Premixed Ivpb - IVPB 100 mls/hr BID [facility] Administration Losartan Potassium 50 mg 04/23/19 10:00 04/25/19 09:25 Cozaar - PO 50 mg DAILY [facility] Administration Magnesium Hydroxide 30 ml 04/22/19 14:19 Milk Of Magnesia - PO PRN PRN CONSTIPATION Melatonin 5 mg 04/22/19 14:19 04/24/19 22:06 Melatonin PO 5 mg HS PRN Administration INSOMNIA Multivitamins/Minerals 1 each 04/21/19 10:00 04/25/19 09:24 Theragran-M PO 1 each DAILY [facility] Administration Ondansetron HCl 4 mg 04/24/19 15:00 04/25/19 14:20 Zofran Injection IVPUSH 4 mg Q6H-IV [facility] Administration Pantoprazole Sodium 40 mg 04/25/19 13:00 04/25/19 14:23 Protonix - PO 40 mg DAILY [facility] Administration Thiamine HCl 100 mg 04/21/19 10:00 04/25/19 09:25 Vitamin B1 - PO 100 mg DAILY [facility] Administration ASSESSMENT/PLAN: 69 y/o F with a PMHx of HTN, CAD (s/p stent) PSA (crack cocaine, heroin, alcohol ), who presents today from [facility] with acute encephalopathy 2/2 to overdose at [facility] with chest pain, found to have new EKG changes. #Acute Encephalopathy 2/2 to likely overdose -Head CT negative -Patient not given methadone today after confirming with Dr Leija she is not on methadone. -holding librium/ativan -Urine toxicology positive for methadone and benzos -TSH 0.28 (low), T4 (normal) likely subacute hyperthyroidism. CPK ordered- High , -Addiction medicine consulted, appreciate recs for continued detox #Abdominal Pain - CTAP w/ contrast remarkable for 1.5 cm dilated CBD, mildly dilated pancreatic duct 0.4 cm; GB contraction could be physiologic vs. chronic cholecystitis -MRCP limited report showing no choledoco, no dilation of cbd, dilated common hepatic duct (1.4cm), mild panc duct dilation w/o neoplasm of ampulla, assymetry w prominent left intrahepatic duct. Recommend ERCP for further eval. -LFTs wnl, cont to trend -Per GI, unlikely obstruction, but will likely obtain ERCP #Chest pain likely gastritis 2/2 PSA; Stable. -Pt has no symptomatic complaints today. -Echo completed last admission showed normal LV and RV function, 60% EF -3 troponins negative - s/w cardio- doubt cardiac related cp, f/u stress test as o/p. #Chronic sinusitis - likely related to cocaine use, no need for acute treatment, can give outpatient requisition for ENT referral #Polysubstance abuse - management as per toxicology specialist, can offer rehabilitation as needed. -Underweight, BMI 16, likely related to drug use. #JENNIFER - pre-renal in origin; - Resolved. Improved with IVf -Cr back at baseline of 0.8 -PO hydration #Hx of HTN; Uncontrolled. -Cont home meds: c/w Carvedilol 6.25 mg PO BID, Losartan 50 mg PO , and d/c Nifedipine 30 mg PO daily and start amlodipine 5mg for coronary vasospasm mgmt. F: Oral hydration E: Trend Mag, Phos, CMP N: Regular diet DVT: Heparin SQ TID Visit type - Emergency Visit Emergency Visit: Yes ED Registration Date: 04/20/19 Care time: The patient presented to the Emergency Department on the above date and was hospitalized for further evaluation of their emergent condition. - New Patient This patient is new to me today: No - Critical Care Critical Care patient: No - Discharge Referral Referred to [facility] Med P.C.: No ATTENDING PHYSICIAN STATEMENT I saw and evaluated the patient. I reviewed the resident's note and discussed the case with the resident. I agree with the resident's findings and plan as documented. SUBJECTIVE: OBJECTIVE: ASSESSMENT AND PLAN:
--- NOTE | 2019-04-25 17:37 | PN.GI ---
GI Progress Note Subjective: No acute events States feeling depressed. States that she hasn't been eating with the hopes of dying at times. Also states that she has though oif kiling hersels and at time has thought of "taking her with her". No abdominal pain MRI revealed dilated CHD, normal caliber CBD, mildly dilated PD - Objective Vital Signs: Vital Signs Temperature 98.6 F 04/25/19 16:56 Pulse Rate 84 04/25/19 16:56 Respiratory Rate 18 04/25/19 16:56 Blood Pressure 139/92 04/25/19 16:56 O2 Sat by Pulse Oximetry (%) 97 04/25/19 09:00 Constitutional: Calm Eyes: No: Sclera Icterus Cardiovascular: Yes: Regular Rate and Rhythm Gastrointestinal Inspection: No: Distention ...Auscultate: Yes: Normoactive Bowel Sounds ...Percussion: No: Tympanitic Edema: No (No LE edema) Neurological: Yes: Alert Labs: CBC, BMP 04/24/19 09:45 04/24/19 09:45 INR, PTT INR 0.92 (0.83-1.09) 04/20/19 00:55 Problem List - Problems (1) Bile duct abnormality Assessment/Plan: Liver chemistries not suggestive of biliary obstructive, would not commit her to ERCP at this time. Would likely benefit from outpatient referral for EUS. She expresses wishes to continue care in the [facility] where she lives. She states that she has a PMD there. I advised that she discuss things with her primary care and arrange follow-up with a engine hostler. Effort should be made prior to discharge to actually get more specifics regarding Ms. Ceja's PMD and arrange follow-up. Code(s): K83.9 - DISEASE OF BILIARY TRACT, UNSPECIFIED (2) Depression Assessment/Plan: suicidal and homcidal ideations expressed to me during evaluation today. This was discussed with Ms. Ceja's nurse this evening and appopriate steps being taken. Code(s): F32.9 - MAJOR DEPRESSIVE DISORDER, SINGLE EPISODE, UNSPECIFIED
[2019-04-26] MEDS: ONDANSETRON 4 MG/2 ML VIAL IVPUSH SCH ×2 (03:43→09:11)
[2019-04-26] MEDS: HEPARIN NA (PORCINE) 5,000 UNITS/ML 1ML VIAL SQ SCH ×3 (05:38→21:54)
--- NOTE | 2019-04-26 07:47 | PN ---
Physical Exam: SUBJECTIVE: Patient seen and examined at bedside. Pt c/o of nausea and epigastric pain. Pt denies being suicidal, stating she only said that because she wanted her own room. Psych for eval. OBJECTIVE: Vital Signs Period Temp Pulse Resp BP Sys/Biswas Pulse Ox Last 24 Hr 98.1 F-99.7 F 76-89 18-20 129-159/80-104 97-98 GENERAL: The patient is awake, alert, and fully oriented, in no acute distress. NECK: supple. LUNGS: Breath sounds equal, clear to auscultation bilaterally, no wheezes, no crackles. HEART: Regular rate and rhythm, S1, S2 without murmur, rub or gallop. ABDOMEN: Soft, mildly tender, nondistended, hyperactive bowel sounds. EXTREMITIES: 2+ pulses, warm, well-perfused, no edema. NEUROLOGICAL: Cranial nerves II through XII grossly intact. Normal speech, gait not observed. PSYCH: depressed mood Laboratory Results - last 24 hr 04/25/19 10:00 HIV 1&2 Ag/Ab, 4th Gen Non reactive Active Medications Generic Name Dose Route Start Last Admin Trade Name Ghulam PRN Reason Stop Dose Admin Acetaminophen 650 mg 04/25/19 14:42 Tylenol - PO Q6H PRN PAIN LEVEL 1 - 6 Al Hydroxide/Mg Hydroxide 30 ml 04/22/19 14:19 04/24/19 17:14 Mylanta Oral Suspension - PO 30 ml Q6H PRN Administration DYSPEPSIA Amlodipine Besylate 5 mg 04/25/19 10:00 04/25/19 09:32 Norvasc - PO 5 mg DAILY [facility] Administration Aspirin 81 mg 04/21/19 10:15 04/25/19 09:24 Ecotrin - PO 81 mg DAILY [facility] Administration Carvedilol 6.25 mg 04/22/19 14:24 04/25/19 21:59 Coreg - PO 6.25 mg BID [facility] Administration Folic Acid 1 mg 04/21/19 10:00 04/25/19 09:24 Folic Acid - PO 1 mg DAILY [facility] Administration Heparin Sodium (Porcine) 5,000 unit 04/20/19 06:00 04/26/19 05:38 Heparin - SQ Not Given TID [facility] Famotidine/Sodium Chloride 20 mg in 50 mls @ 100 mls/hr 04/24/19 22:00 22:07 Pepcid 20 Mg Premixed Ivpb - IVPB 100 mls/hr BID [facility] Administration Losartan Potassium 50 mg 04/23/19 10:00 04/25/19 09:25 Cozaar - PO 50 mg DAILY [facility] Administration Magnesium Hydroxide 30 ml 04/22/19 14:19 Milk Of Magnesia - PO PRN PRN CONSTIPATION Melatonin 5 mg 04/22/19 14:19 04/24/19 22:06 Melatonin PO 5 mg HS PRN Administration INSOMNIA Multivitamins/Minerals 1 each 04/21/19 10:00 04/25/19 09:24 Theragran-M PO 1 each DAILY [facility] Administration Ondansetron HCl 4 mg 04/24/19 15:00 04/26/19 03:43 Zofran Injection IVPUSH 4 mg Q6H-IV [facility] Administration Thiamine HCl 100 mg 04/21/19 10:00 04/25/19 09:25 Vitamin B1 - PO 100 mg DAILY [facility] Administration ASSESSMENT/PLAN: 69 y/o F with a PMHx of HTN, CAD (s/p stent) PSA (crack cocaine, heroin, alcohol ), who presents today from [facility] with acute encephalopathy 2/2 to overdose at [facility] with chest pain, found to have new EKG changes. #Acute Encephalopathy 2/2 to likely overdose -Head CT negative -Patient not given methadone today after confirming with Dr Leija she is not on methadone. -holding librium/ativan -Urine toxicology positive for methadone and benzos -TSH 0.28 (low), T4 (normal) likely subacute hyperthyroidism. CPK ordered- High , -Addiction medicine consulted, appreciate recs for continued detox #Suicide risk - dc 1:1 given psych deemed pt not suicidal - #Abdominal Pain - CTAP w/ contrast remarkable for 1.5 cm dilated CBD, mildly dilated pancreatic duct 0.4 cm; GB contraction could be physiologic vs. chronic cholecystitis -MRCP limited report showing no choledoco, no dilation of cbd, dilated common hepatic duct (1.4cm), mild panc duct dilation w/o neoplasm of ampulla, assymetry w prominent left intrahepatic duct. Recommend ERCP for further eval. -LFTs wnl, cont to trend -Per GI, unlikely obstruction, but will likely obtain ERCP #Chest pain likely gastritis 2/2 PSA; Stable. -Pt has no symptomatic complaints today. -Echo completed last admission showed normal LV and RV function, 60% EF -3 troponins negative - s/w cardio- doubt cardiac related cp, f/u stress test as o/p. #Chronic sinusitis - likely related to cocaine use, no need for acute treatment, can give outpatient requisition for ENT referral #Polysubstance abuse - management as per toxicology specialist, can offer rehabilitation as needed. -Underweight, BMI 16, likely related to drug use. - encourage to eat more #JENNIFER - pre-renal in origin; - Resolved. Improved with IVf -Cr back at baseline of 0.8 -PO hydration #Hx of HTN; Uncontrolled. -Cont home meds: c/w Carvedilol 6.25 mg PO BID, Losartan 50 mg PO , and d/c Nifedipine 30 mg PO daily and start amlodipine 5mg for coronary vasospasm mgmt. F: Oral hydration E: Trend Mag, Phos, CMP N: Regular diet DVT: Heparin SQ TID ATTENDING PHYSICIAN STATEMENT I saw and evaluated the patient. I reviewed the resident's note and discussed the case with the resident. I agree with the resident's findings and plan as documented. SUBJECTIVE: OBJECTIVE: ASSESSMENT AND PLAN:
[2019-04-26 08:13] LABS: BASO % 0.8 % (0-2.0); EOS % 0.6 % (0-4.5); HEMATOCRIT 39.2 % (32.4-45.2); HEMOGLOBIN 13.6 GM/dL (10.7-15.3); LYMPH % 23.7 % (8-40); MCH 30.4 pg (25.7-33.7); MCHC 34.6 g/dl (32.0-36.0); MEAN CELL VOLUME 87.9 fl (80-96); MEAN PLT VOLUME 7.4 fl (7.5-11.1); MONO % 8.3 % (3.8-10.2); NEUT % 66.6 % (42.8-82.8); PLATELET COUNT 344 K/MM3 (134-434); RBC 4.46 M/mm3 (3.60-5.2); WHITE BLOOD COUNT 5.3 K/mm3 (4.0-10.0)
[2019-04-26 08:33] LABS: ALBUMIN 3.5 g/dl (3.4-5.0); BILIRUBIN,TOTAL 0.6 mg/dL (0.2-1); BLOOD UREA NITROGEN 13.8 mg/dL (7-18); CALCIUM 10.1 mg/dL (8.5-10.1); CREATININE 0.9 mg/dL (0.55-1.3); POTASSIUM 4.6 mmol/L (3.5-5.1); TOT PROT 7.2 g/dl (6.4-8.2)
[2019-04-26] MEDS: CARVEDILOL 6.25 MG TABLET (FP) PO SCH ×2 (10:11→21:54)
[2019-04-26] MEDS: LOSARTAN POTASSIUM 50 MG TABLET (FP) PO SCH (10:11)
[2019-04-26] MEDS: THIAMINE HCL 100 MG TABLET (FP) PO SCH (10:12)
[2019-04-26] MEDS: amLODIPine BESYLATE 5 MG TABLET (FP) PO SCH (10:12)
[2019-04-26] MEDS: FOLIC ACID 1 MG TABLET (FP) PO SCH (10:12)
[2019-04-26] MEDS: MULTIVITAMINS THER W-MINERALS COMBO TABLET (FP) PO SCH (10:12)
[2019-04-26] MEDS: ASPIRIN COATED 81 MG TABLET.EC PO SCH (10:12)
[2019-04-26] MEDS: FAMOTIDINE 20 MG/50 ML IVPB 20 MG/50 ML MG IVPB SCH (10:21)
--- NOTE | 2019-04-26 13:54 | CON.PSY ---
Psychiatry Consult Chief Complaint: I dont want to kill my , i ;love him. I said all these things to get a PVT room. I* dont have any psych , I use [facility]. - Previous Psychiatric Treatment Outpatient: None Inpatient: None - Previous Substance Abuse Treatment Outpatient: More than 6 mos ago Inpatient: 2 or more prior admissions - Reason for Previous Treatment Reason for Previous Treatment: Heroin or Other Narcotics - Current Medications Current Medications: Active Medications Acetaminophen (Tylenol -) 650 mg PO Q6H PRN PRN Reason: PAIN LEVEL 1 - 6 Al Hydroxide/Mg Hydroxide (Mylanta Oral Suspension -) 30 ml PO Q6H PRN PRN Reason: DYSPEPSIA Last Admin: 04/24/19 17:14 Dose: 30 ml Amlodipine Besylate (Norvasc -) 5 mg PO DAILY [facility] Last Admin: 04/26/19 10:12 Dose: 5 mg Aspirin (Ecotrin -) 81 mg PO DAILY [facility] Last Admin: 04/26/19 10:12 Dose: 81 mg Carvedilol (Coreg -) 6.25 mg PO BID [facility] Last Admin: 04/26/19 10:11 Dose: 6.25 mg Folic Acid (Folic Acid -) 1 mg PO DAILY [facility] Last Admin: 04/26/19 10:12 Dose: 1 mg Heparin Sodium (Porcine) (Heparin -) 5,000 unit SQ TID [facility] Last Admin: 04/26/19 05:38 Dose: Not Given Losartan Potassium (Cozaar -) 50 mg PO DAILY [facility] Last Admin: 04/26/19 10:11 Dose: 50 mg Magnesium Hydroxide (Milk Of Magnesia -) 30 ml PO PRN PRN PRN Reason: CONSTIPATION Melatonin (Melatonin) 5 mg PO HS PRN PRN Reason: INSOMNIA Last Admin: 04/24/19 22:06 Dose: 5 mg Multivitamins/Minerals (Theragran-M) 1 each PO DAILY [facility] Last Admin: 04/26/19 10:12 Dose: 1 each Thiamine HCl (Vitamin B1 -) 100 mg PO DAILY [facility] Last Admin: 04/26/19 10:12 Dose: 100 mg - Allergies Allergies: Allergies Allergy/AdvReac Type Severity Reaction Status Date / Time No Known Allergies Allergy Verified 04/20/19 00:38 - Current Living Status Usual Living Arrangement: With Spouse - Current Mental Status Evaluation Appearance: Well Groomed Attitude: Cooperative - Affect Affect: Full Range Appropriateness: Appropriate to Content - Mood Mood: Euthymic - Speech/Language Expressive: Coherent - Psychomotor Activity Psychomotor Activity: Normal - Thought Process Thought Process: Intact - Thought Content Hallucinations: Absent Delusions: Absent - Self Perception Self Perception: No Impairment - Cognition Attention: Alert Orientation: Time Memory, Immediate Recall: Intact Memory, Short Term: 3/3 Memory, Remote with Promptin/3 - Concentration Serial Sevens Intact: No Simple Calculations Intact: Yes - Abstraction Proverb Interpretation: Intact Judgement: Intact - Insight Insight: Intact - Impulse Control Impulse Control: Good Control - Suicidal Ideation Suicidal Ideation: No - Homicidal Ideation Homicidal Ideation: No Assessment/Plan 1) No acute Mental iollness. 2) Patient is not suicidal or Homicidal. 3) can be discharged Home or back after Medical Stabilization. 4 d/c 1:1.
[2019-04-26] MEDS ORDERED: ONDANSETRON *ODT* 4 MG TABLET SL PRN (14:18)
[2019-04-26] MEDS: PANTOPRAZOLE 40 MG TABLET PO SCH (14:58)
--- NOTE | 2019-04-26 16:35 | DS ---
Physical Exam: SUBJECTIVE: Patient seen and examined OBJECTIVE: Vital Signs Period Temp Pulse Resp BP Sys/Biswas Pulse Ox Last 24 Hr 98.3 F-99.7 F 80-89 18-20 132-159/83-104 97-98 PHYSICAL EXAM GENERAL: The patient is awake, alert, and fully oriented, in no acute distress. HEAD: Normal with no signs of trauma. EYES: PERRL, extraocular movements intact, sclera anicteric, conjunctiva clear. ENT: Ears normal, nares patent, oropharynx clear without exudates, moist mucous membranes. NECK: Trachea midline, full range of motion, supple. LUNGS: Breath sounds equal, clear to auscultation bilaterally, no wheezes, no crackles, no accessory muscle use. HEART: Regular rate and rhythm, S1, S2 without murmur, rub or gallop. ABDOMEN: Soft, nontender, nondistended, normoactive bowel sounds, no guarding, no rebound, no hepatosplenomegaly, no masses. EXTREMITIES: 2+ pulses, warm, well-perfused, no edema. NEUROLOGICAL: Cranial nerves II through XII grossly intact. Normal speech, gait not observed. PSYCH: Normal mood, normal affect. SKIN: Warm, dry, normal turgor, no rashes or lesions noted. LABS Laboratory Results - last 24 hr 04/25/19 04/26/19 04/26/19 10:00 06:05 06:05 WBC 5.3 RBC 4.46 Hgb 13.6 Hct 39.2 MCV 87.9 MCH 30.4 MCHC 34.6 RDW 14.0 Plt Count 344 MPV 7.4 L Absolute Neuts (auto) 3.5 Neutrophils % 66.6 Lymphocytes % 23.7 Monocytes % 8.3 Eosinophils % 0.6 Basophils % 0.8 Nucleated RBC % 0 Sodium Potassium Chloride Carbon Dioxide Anion Gap BUN Creatinine Est GFR (CKD-EPI)AfAm Est GFR (CKD-EPI)NonAf Random Glucose Hemoglobin A1c % 5.6 Calcium Total Bilirubin AST ALT Alkaline Phosphatase Total Protein Albumin HIV 1&2 Ag/Ab, 4th Gen Non reactive 04/26/19 06:05 WBC RBC Hgb Hct MCV MCH MCHC RDW Plt Count MPV Absolute Neuts (auto) Neutrophils % Lymphocytes % Monocytes % Eosinophils % Basophils % Nucleated RBC % Sodium 137 Potassium 4.6 Chloride 104 Carbon Dioxide 26 Anion Gap 7 L BUN 13.8 Creatinine 0.9 Est GFR (CKD-EPI)AfAm 75.08 Est GFR (CKD-EPI)NonAf 64.78 Random Glucose 105 Hemoglobin A1c % Calcium 10.1 Total Bilirubin 0.6 AST 28 ALT 32 Alkaline Phosphatase 55 Total Protein 7.2 Albumin 3.5 HIV 1&2 Ag/Ab, 4th Gen HOSPITAL COURSE: Date of Admission:04/20/19 Date of Discharge: 04/26/19 Discharge Summary Reason For Visit: OPIOID WITHDRWAL,NICOTINE DEPENDENCE,CORONARY SAUL Current Active Problems Depression (Chronic) Condition: Fair - Instructions Diet, Activity, Other Instructions: You were admitted for chest pain and increased fatigue. After numerous testing and evaluation of your chest pain, we attribute it likely to your recent cocaine and illegal drug use. You also had abdominal pain that was evaluated with an imaging study (MRCP) as well as a glassware maker who found a liver and pancreas duct issue that he would like you to follow up with your primary care physician regarding setting up the necessary testing and treatment for this. You are now stable enough for discharge. You should stop using alcohol or illegal drugs like cocaine and marijuana which can worsen your current condition. You should follow up with Dr Leija at [facility] for rehab. Medication we discontinued while you were here Please STOP taking Nifedipine Medications we started: Amlodipine 5 mg tablet by mouth once daily for your high blood pressure and to help with your chest pain. Zofran by mouth 4mg one pill every 8 hours as needed for nausea. Protonix 40mg by mouth one pill daily for acid reflux and belly pain. Aspirin 81 mg by mouth one pill daily to reduce clot formation. Folic acid 1 tab by mouth daily as a vitamin supplement for your alcohol use history. Continue your home medications as prescribed as well as mylanta and milk of magnesia for your indigestion. You may take tylenol up to 1gram every 8 hours as needed for your pain. You should follow up with your cupola hoist operator (Dr. King) for cardiac stress testing given to further evaluate your chest pain that you presented with. You should follow up with your primary care physician at the [facility] clinic. I made you an appointment on wednesday05/01/19 at 1:30 PM to discuss your follow up with a glassware maker (Dr. Simms) to assess your liver duct with an imaging study (endoscopic Ultrasound). For your chronic sinusitis, I recommend you follow up with an ENT specialist ( Dr. Butler) in 1 week after you leave here. You should return to the emergency room if you have any worsening of your current symptoms or: chest pain, shortness of breath, abdominal pain, bowel/ bladder complaints etc. Referrals: Mesfin De Jesus MD [Staff Physician] - 1 Week Sunil King MD [Staff Physician] - 2 Weeks (o/p stress test ) Alex Leija DO [Staff Physician] - 1 Week Fitz Butler MD [Staff Physician] - 1 Week (chronic sinusitis) Disposition: HOME - Home Medications Comprehensive Discharge Medication List: Ambulatory Orders Carvedilol [Coreg -] 6.25 mg PO BID #60 tablet 04/18/19 Losartan Potassium [Cozaar -] 50 mg PO DAILY #30 tablet 04/18/19 Acetaminophen [Tylenol] 650 mg PO Q6H PRN 04/21/19 Bismuth Subsalicylate [Pepto-Bismol -] 30 ml PO Q1H PRN 04/21/19 Mag Hydrox/Al Hydrox/Simeth [Mylanta Oral Suspension -] 30 ml PO Q6H PRN Magnesium Hydrox 2400MG/30Ml [Milk of Magnesia -] 30 ml PO PRN PRN 04/21/19 Melatonin 5 mg PO HS PRN 04/21/19 Menthol/Phenol [Cepastat Lozenge -] 1 each PO Q4H PRN 04/21/19 Thiamine HCl [Vitamin B-1] 100 mg PO HS 04/21/19 Amlodipine Besylate [Norvasc -] 5 mg PO DAILY #30 tablet 04/26/19 Aspirin Coated [Ecotrin -] 81 mg PO DAILY #30 tablet.ec 04/26/19 Folic Acid - 1 mg PO DAILY #30 tablet 04/26/19 Ondansetron [Zofran -] 4 mg PO Q8H PRN #14 tablet 04/26/19 Pantoprazole Sodium [Protonix -] 40 mg PO DAILY #30 tablet.ec 04/26/19 - Discharge Referral Referred to [facility] No ATTENDING PHYSICIAN STATEMENT I saw and evaluated the patient. I reviewed the resident's note and discussed the case with the resident. I agree with the resident's findings and plan as documented. SUBJECTIVE: OBJECTIVE: ASSESSMENT AND PLAN:
--- NOTE | 2019-04-26 21:02 | PN ---
Progress Note (short form) - Note Progress Note: Microblog from nurse stating pt refusing to leave this evening. Upon assesment of patient, pt stating she has nobody to take care of her at home and would like to return to [facility] for rehab but they do not have beds. Pt states she would like to stay until AM, her family will be there to pick her up at 11 AM. Social work notified regarding finding a bed for rehab at [facility] and that patient will not be going home this evening. DC order has been discontinued and will order it for tm AM.
[2019-04-26] MEDS: MELATONIN 5 MG TABLETS PO PRN (21:54)
[2019-04-26 22:05] LABS: HEP B CORE AB, TOT Positive (Negative)
[2019-04-27] MEDS: HEPARIN NA (PORCINE) 5,000 UNITS/ML 1ML VIAL SQ SCH (06:02)
[2019-04-27 09:27] VITALS: BP 114/72; PULSE 76; TEMP 98.2
[2019-04-27] MEDS: MULTIVITAMINS THER W-MINERALS COMBO TABLET (FP) PO SCH (09:30)
[2019-04-27] MEDS: amLODIPine BESYLATE 5 MG TABLET (FP) PO SCH (09:30)
[2019-04-27] MEDS: ASPIRIN COATED 81 MG TABLET.EC PO SCH (09:31)
[2019-04-27] MEDS: LOSARTAN POTASSIUM 50 MG TABLET (FP) PO SCH (09:31)
[2019-04-27] MEDS: FOLIC ACID 1 MG TABLET (FP) PO SCH (09:31)
[2019-04-27] MEDS: THIAMINE HCL 100 MG TABLET (FP) PO SCH (09:31)
[2019-04-27] MEDS: CARVEDILOL 6.25 MG TABLET (FP) PO SCH (09:31)
[2019-04-27] MEDS: PANTOPRAZOLE 40 MG TABLET PO SCH (09:31)
[2019-04-27 11:54] VITALS: BMI 16.2
== END 2019-04-27 11:45 | disposition home or self-care (01) | DRG 917 ==
LOC: JER 00:12 → JERBED 03:56 → J4W 04-21 21:10 → J4S 04-25 21:29
PROVIDERS: ADMIT Internal Medicine; ATTEND Internal Medicine
DX: T40.3X1A Poisoning by methadone, accidental (unintentional), initial encounter (principal); G92 Toxic encephalopathy; F19.20 Other psychoactive substance dependence, uncomplicated; N17.9 Acute kidney failure, unspecified; Z68.1 Body mass index [BMI] 19.9 or less, adult; E87.6 Hypokalemia; E83.42 Hypomagnesemia; I25.10 Atherosclerotic heart disease of native coronary artery without angina pectoris; K83.9 Disease of biliary tract, unspecified; R50.9 Fever, unspecified; I10 Essential (primary) hypertension; T40.3X5A Adverse effect of methadone, initial encounter; E86.0 Dehydration; I95.9 Hypotension, unspecified; Z95.5 Presence of coronary angioplasty implant and graft; F32.9 Major depressive disorder, single episode, unspecified; R41.82 Altered mental status, unspecified; R07.9 Chest pain, unspecified; R63.6 Underweight; J32.9 Chronic sinusitis, unspecified; R10.9 Unspecified abdominal pain; R73.9 Hyperglycemia, unspecified
CPT/HCPCS: 36415; 70450-TC; 71045-TC-FY; 74177-TC; 74182-TC; 76705-TC; 80048; 80053; 80061; 80307; 81003; 82436; 82550; 82962; 83036; 83605; 83690; 83721; 83735; 84100; 84133; 84300; 84439; 84443; 84484; 85025; 85027; 85610; 86704; 86706; 86707; 86708; 86709; 86803; 87040; 87077; 87086; 87340; 87389; 87902; 93005; 93010; 97116-GP; 97161-GP; 99285-25; A9579; J0131; J1644; J7030; Q0162; Q9967